=== PATIENT | female | born 1965 | race Caucasian/White ===

== ENCOUNTER → 2018-08-15 11:11 | Outpatient (CLI) | payer OTHER, SELFPAY ==
[2018-08-15 11:23] LABS: RBC Urine None Seen (0-5/HPF)
[2018-08-15 11:50] LABS: Hematocrit 40.7 % (36-46); Hemoglobin 13.6 g/dL (12.0-16.0); Mean Corpuscular HGB Conc 33.3 % (30-36); Mean Corpuscular Volume 93.2 fL (80-100); Platelet Count 268 X10^3/uL (150-400); Red Blood Cell Count 4.37 X10^6/uL (4.0-5.2); Red Cell Distribution Width 13.4 % (11.6-14.8)
[2018-08-15 12:24] LABS: BUN Creatinine Ratio 13.3 (6-22); Blood Urea Nitrogen 16 mg/dL (7-17); Calcium 9.3 mg/dL (8.4-10.2); Carbon Dioxide 27 mmol/L (22-32); Chloride 100 mmol/L (98-107); Glucose 99 mg/dL (70-100); HEMOLYSIS < 15 (0-50); Potassium 4.5 mmol/L (3.4-5.1); Sodium 138 mmol/L (137-145)
[2018-08-15 12:30] LABS: Transferrin 237 mg/dL (206-381)
[2018-08-15 12:31] LABS: Appearance Urine UA CLEAR; Bilirubin Urine UA NEGATIVE (NEGATIVE); Color Urine UA YELLOW; Glucose Urine UA NEGATIVE (Negative); Ketones Urine UA NEGATIVE (NEGATIVE); Leukocyte Esterase Urine UA NEGATIVE (NEGATIVE); Nitrite Urine UA NEGATIVE (Negative); Occult Blood Urine UA NEGATIVE (Negative); Protein Urine UA NEGATIVE (Negative); Specific Gravity Urine UA 1.025 (1.000-1.035); Urobilinogen Urine UA 0.2 E.U./dL (0.2); pH Urine UA 5.5 (4.5-8.0)
[2018-08-15 12:42] LABS: Amorphous Sediment Urine 1+; Bacteria Urine Moderate (10-30); Culture Indicated Urine Cult Not Indicated; Squamous Epithelial Cell Urine 5-10 /HPF; WBC Urine 0-1/HPF (0-5/HPF)
== END ==
PROVIDERS: Family Provider Family Medicine; PCP Family Medicine; Visit Provider Orthopaedic Surgery
DX: E61.1 Iron deficiency (principal); N39.0 Urinary tract infection, site not specified; R73.9 Hyperglycemia, unspecified; Z01.818 Encounter for other preprocedural examination
CPT/HCPCS: 36415; 80048; 81001; 83036; 84466; 85027; 93005; 93010

== ENCOUNTER → 2018-08-22 08:07 | Outpatient (CLI) | payer OTHER, SELFPAY ==
[2018-08-22 09:31] LABS: Alanine Aminotransferase 30 IU/L (9-52); Albumin 4.7 g/dL (3.5-5.0); Albumin Globulin Ratio 1.5 (1.0-2.8); Alkaline Phosphatase 56 U/L (38-126); Aspartate Aminotransferase 26 IU/L (14-36); BUN Creatinine Ratio 17.5 (6-22); Bilirubin Total 0.5 mg/dL (0.2-1.3); Blood Urea Nitrogen 14 mg/dL (7-17); Calcium 9.3 mg/dL (8.4-10.2); Carbon Dioxide 27 mmol/L (22-32); Chloride 97 mmol/L (98-107); Cholesterol 194 mg/dL (140-199); Estimated Glomerular Filt Rate > 60.0 mL/min (>60); Globulin 3.2 g/dL (1.7-4.1); Glucose 93 mg/dL (70-100); HDL Cholesterol 73 mg/dL (40-60); HEMOLYSIS < 15 (0-50); LDL Cholesterol Calculated 106 mg/dL (<100); Potassium 3.6 mmol/L (3.4-5.1); Sodium 136 mmol/L (137-145); Total Protein 7.9 g/dL (6.3-8.2); Triglycerides 73 mg/dL (35-150)
[2018-08-22 10:41] LABS: TSH w/ Reflex to FT4 3.79 uIU/mL (0.47-4.68)
== END ==
PROVIDERS: PCP Family Medicine; Visit Provider Family Medicine
DX: Z00.00 Encounter for general adult medical examination without abnormal findings (principal); Z13.6 Encounter for screening for cardiovascular disorders
CPT/HCPCS: 36415; 80053; 80061; 84443

== ENCOUNTER → 2018-08-28 09:46 | Outpatient (CLI) | payer OTHER, SELFPAY ==
--- NOTE | 2018-08-28 | DI.MG.S_ITS ---
BILATERAL DIGITAL SCREENING MAMMOGRAM 3D/2D WITH CAD WITH AUGMENTATION: 08/28/2018 CLINICAL: Routine screening. Family history of breast cancer. Comparison is made to exams dated: 08/27/2017 mammogram, 08/24/2016 mammogram, and 07/11/2015 mammogram - [facility]. The tissue of both breasts is heterogeneously dense. This may lower the sensitivity of mammography. Current study was also evaluated with a Computer Aided Detection (CAD) system. Bilateral breast implants are intact. There are benign calcifications in both breasts. No significant masses, calcifications, or other findings are seen in either breast. There has been no significant interval change. IMPRESSION: There is no mammographic evidence of malignancy. A 1 year screening mammogram is recommended. This exam was interpreted at Station ID: [id number]. NOTE: For mammograms, a report in lay terms will be sent to the patient. Approximately 15% of breast malignancies will not be visualized mammographically. In the management of a palpable breast mass, a negative mammogram must not discourage biopsy of a clinically suspicious lesion. Electronically Signed By: Zen nielsen/chris:08/28/2018 10:49:23 copy to: Oscar Sue letter sent: Normal Exam ACR BI-RADS Category 2: Benign Finding(s) 3342F
== END ==
PROVIDERS: PCP Family Medicine; Visit Provider Obstetrics & Gynecology
DX: Z12.31 Encounter for screening mammogram for malignant neoplasm of breast (principal); Z80.3 Family history of malignant neoplasm of breast
CPT/HCPCS: 77063; 77067

== ENCOUNTER → 2019-10-30 15:12 | Outpatient (CLI) | payer OTHER, SELFPAY ==
--- NOTE | 2019-10-30 | DI.MG.S_ITS ---
BILATERAL DIGITAL SCREENING MAMMOGRAM 3D/2D WITH CAD WITH AUGMENTATION: 10/30/2019 CLINICAL: Routine screening. Family history of breast cancer. Comparison is made to exams dated: 08/28/2018 mammogram, 08/27/2017 mammogram, and 08/24/2016 mammogram - [facility]. The tissue of both breasts is heterogeneously dense. This may lower the sensitivity of mammography. Current study was also evaluated with a Computer Aided Detection (CAD) system. Bilateral breast implants are intact. There are benign calcifications in both breasts. No significant masses, calcifications, or other findings are seen in either breast. There has been no significant interval change. IMPRESSION: There is no mammographic evidence of malignancy. A 1 year screening mammogram is recommended. This exam was interpreted at Station ID: [id number]. NOTE: For mammograms, a report in lay terms will be sent to the patient. Approximately 15% of breast malignancies will not be visualized mammographically. In the management of a palpable breast mass, a negative mammogram must not discourage biopsy of a clinically suspicious lesion. Electronically Signed By: Jacki hardwick/chris:10/30/2019 17:26:57 copy to: Oscar Sue letter sent: Normal Exam ACR BI-RADS Category 2: Benign Finding(s) 3342F
== END ==
PROVIDERS: PCP Family Medicine; Referring Provider Family Medicine; Visit Provider Family Medicine
DX: Z12.31 Encounter for screening mammogram for malignant neoplasm of breast (principal); Z80.3 Family history of malignant neoplasm of breast
CPT/HCPCS: 77063; 77067

== ENCOUNTER → 2019-11-10 10:45 | Outpatient (CLI) | payer OTHER, SELFPAY ==
--- NOTE | 2019-11-10 10:46 | DI.RAD.S_ITS ---
PROCEDURE: XR KNEE RT 3V INDICATIONS: right knee pain OA TECHNIQUE: 3 views of the knee were acquired. COMPARISON: None. FINDINGS: Bones: No fractures or dislocations. No suspicious bony lesions. Soft tissues: No joint effusion. Slight narrowing of the medial compartment joint space. No suspicious soft tissue calcifications. IMPRESSION: No trauma, source of knee pain is not found except for mild medial compartment joint space narrowing. Dictated by: Luc Landaverde M.D. on 11/10/2019 at 11:17 Approved by: Luc Landaverde M.D. on 11/10/2019 at 11:18
== END ==
PROVIDERS: PCP Family Medicine; Referring Provider Family Medicine; Visit Provider Family Medicine
DX: M25.561 Pain in right knee (principal)
CPT/HCPCS: 73562

== ENCOUNTER → 2019-12-24 15:29 | Outpatient (CLI) | payer OTHER, SELFPAY ==
--- NOTE | 2019-12-24 15:33 | DI.RAD.S_ITS ---
PROCEDURE: XR HAND LT MIN 3V INDICATIONS: hand joint pain TECHNIQUE: 3 views of the hand(s) acquired. COMPARISON: None. FINDINGS: Bones: No fractures or dislocations. Carpal bones are normally aligned. No suspicious bony lesions. Soft tissues: No suspicious soft tissue calcifications. IMPRESSION: No trauma found. Source of new pain over the hand is not identified. Dictated by: Luc Landaverde M.D. on 12/24/2019 at 16:18 Approved by: Luc Landaverde M.D. on 12/24/2019 at 16:19
--- NOTE | 2019-12-24 15:33 | DI.RAD.S_ITS ---
PROCEDURE: XR HAND RT MIN 3V INDICATIONS: hand joint pain TECHNIQUE: 3 views of the hand(s) acquired. COMPARISON: None. FINDINGS: Bones: No fractures or dislocations. Carpal bones are normally aligned. No suspicious bony lesions. Soft tissues: No suspicious soft tissue calcifications. IMPRESSION: Source of hand pain is not found. Dictated by: Luc Landaverde M.D. on 12/24/2019 at 16:19 Approved by: Luc Landaverde M.D. on 12/24/2019 at 16:19
[2019-12-24 16:13] LABS: Add Manual Diff / Slide Review NO; Basophils Absolute Auto 0 /uL (0-100); Basophils Percent Auto 0.6 % (0-2); Eosinophils Absolute Auto 400 /uL (0-450); Eosinophils Percent Auto 5.8 % (2-4); Hematocrit 38.2 % (36-46); Hemoglobin 13.2 g/dL (12.0-16.0); Lymphocytes Absolute Auto 2600 /uL (1100-4500); Lymphocytes Percent Auto 41.3 % (25-40); Mean Corpuscular HGB Conc 34.6 % (30-36); Mean Corpuscular Hemoglobin 31.4 PG (26-34); Mean Corpuscular Volume 90.7 fL (80-100); Monocytes Absolute Auto 400 /uL (0-900); Monocytes Percent Auto 6.5 % (3-14); Neutrophils Absolute Auto 2900 /uL (1500-7000); Neutrophils Percent Auto 45.8 % (50-75); Platelet Count 240 X10^3/uL (150-400); Red Blood Cell Count 4.21 X10^6/uL (4.0-5.2); Red Cell Distribution Width 12.4 % (11.6-14.8); White Blood Cell Count 6.3 X10^3/uL (4.5-11.0)
[2019-12-24 16:38] LABS: Erythrocyte Sedimentation Rate 4 MM/HR (0-20)
[2019-12-24 16:59] LABS: Alanine Aminotransferase 22 IU/L (<35); Albumin 4.6 g/dL (3.5-5.0); Albumin Globulin Ratio 1.7 (1.0-2.8); Alkaline Phosphatase 70 U/L (38-126); Aspartate Aminotransferase 33 IU/L (14-36); BUN Creatinine Ratio 18.6 (6-22); Bilirubin Total 0.3 mg/dL (0.2-1.3); Blood Urea Nitrogen 13 mg/dL (7-17); C-Reactive Protein Quant < 0.5 mg/dL (<1.0); Calcium 9.5 mg/dL (8.4-10.2); Carbon Dioxide 29 mmol/L (22-32); Chloride 103 mmol/L (98-107); Estimated Glomerular Filt Rate > 60.0 mL/min (>60); Globulin 2.7 g/dL (1.7-4.1); Glucose 129 mg/dL (70-100); HEMOLYSIS < 15 (0-50); Potassium 3.9 mmol/L (3.4-5.1); Sodium 140 mmol/L (137-145); Total Protein 7.3 g/dL (6.3-8.2)
[2019-12-24 17:00] LABS: Rheumatoid Factor < 8.6 IU/mL (<12.0)
[2019-12-24 17:27] LABS: TSH w/ Reflex to FT4 1.38 uIU/mL (0.47-4.68)
[2019-12-27 15:08] LABS: CCP Antibodies IgG/IgA 3 units (0-19)
== END ==
PROVIDERS: PCP Family Medicine; Referring Provider Family Medicine; Visit Provider Family Medicine
DX: M13.0 Polyarthritis, unspecified (principal)
CPT/HCPCS: 36415; 73130; 80053; 84443; 85025; 85651; 86140; 86200; 86430

== ENCOUNTER → 2020-06-07 08:57 | Outpatient (CLI) | payer OTHER, SELFPAY ==
[2020-06-07 09:36] LABS: COVID19 -Nasal RAPID Negative (Negative)
== END ==
PROVIDERS: PCP Family Medicine; Visit Provider Obstetrics & Gynecology
DX: Z01.812 Encounter for preprocedural laboratory examination (principal); Z20.828 Contact with and (suspected) exposure to other viral communicable diseases
CPT/HCPCS: 87635

== ENCOUNTER 2020-06-08 09:23 | Day surgery (SDC) | payer OTHER, SELFPAY ==
[2020-06-07 10:50] VITALS: BMI 22.4
[2020-06-08] VITALS (9 sets, daily range): BP systolic 106–135; BP diastolic 54–75; PULSE 70–104; RESP 11–18; TEMP 36.8–37.8; O2SAT 98–100; BMI 21.1
--- NOTE | 2020-06-08 | PATH_ITS ---
[facility] Accession Number: [id number] . 01 Material submitted: . endometrium - ENDOMETRIAL CURETTINGS . 02 Diagnosis: Endometrium, Curettage: Shedding endometrium. Negative for atypical hyperplasia or malignancy. MRV 06/13/2020 1116 Local . 02 Electronically signed: . Radames Grover MD, PhD, Pathologist NPI- [id number] . 01 Gross description: . Received in formalin, labeled endometrial curettings consists of multiple ulrich-pink fragments of soft tissue admixed with clotted blood measuring 2.0 x 1.0 x 0.3 cm in aggregate. The specimen is filtered and entirely submitted in cassette A1. ([id number]) /MRV 06/09/2020 0949 Local . 02 Pathologist provided ICD-10: N95.0 . 02 CPT . 171524 Performed at: 01 [facility] [address] [facility] [place][note 2], [place], [place] [id number] MD Navdeep Boyce MD Phone: [phone] Performed at: 02 [facility] [address] [place], [place] [id number] MD Colleen Monreal MD Phone: [phone]
[2020-06-08] MEDS: LACTATED RINGERS 1,000 ML 42 ML IV ×2 (09:58→11:30)
--- NOTE | 2020-06-08 10:51 | P.OP_ITS ---
Operative Date/Time/Diagnoses Date of procedure: 06/08/20 Time of procedure: 11:32 Pre-op diagnosis: Postmenopausal bleeding s/p endometrial ablation Post-op diagnosis: same Procedure & Clinicians Procedure: Procedures Operation Date: 06/08/20 10:45 <No data on this case meets the specified criteria> Indications: Postmenopausal bleeding Surgeon: Jennifer Luque Anesthesia Type: General (LMA) Operative Notes Findings: Seven week size anteverted uterus No fibroids or polyps in the uterus Closure Type: not applicable Specimen(s): endometrial curettings Estimated blood loss (mL): 5 Blood products transfused: none Procedure in detail: After informed consent was obtained, the patient was taken to the operating room where she was placed in the dorsal supine position. After adequate LMA general anesthesia was achieved, she was placed in the dorsal li thotomy position, and prepped and draped in the usual sterile fashion. A time- out was performed. A bivalve speculum was placed into the vagina and the anterior lip of the cervix was grasped with a single-tooth tenaculum. The cervical os was pinpoint. The gold handled small dilators were used to dilate the os up to the # 5 Hegar dilator. The Hegar dilators were then used to dilate up to the # 7 Hegar dilator. The hysteroscope passed easily into the endometrial cavity. The fundus of the uterus was visualized. There were no polyps or fibroids seen. The hysteroscope was removed. Sharp curettage was performed yielding a moderate amount of endometrial curettings. The instruments were removed from the uterus. The single-tooth tenaculum was removed from the anterior lip of the cervix. The bivalve speculum was removed from the vagina. Sponge, lap, and instrument counts were correct x2. The patient tolerated the procedure well, and was taken to PACU in stable condition. Complications: none Post-operative Condition: stable Disposition: PACU Plan for aftercare: Home after recovery
--- NOTE | 2020-06-08 10:52 | PM.HP.1 ---
History of Present Illness History of Present Illness Date Patient Seen: 06/08/20 Time Patient Seen: 10:52 Chief complaint: SDC Narrative: Patient is a 54-year-old with postmenopausal bleeding here for D&C hysteroscopy Patient is status post an endometrial ablation and she was pretreated with Cytotec vaginally Patient History Medical History (Updated 06/08/20 @ 10:10 by Summer Rangel RN) Anxiety (02/27/17) Anxiety Arrhythmia Arthritis Depression Heart murmur Hypnotic dependence with current use Insomnia Right shoulder pain Sinus drainage Surgical History (Updated 06/06/20 @ 05:57 by Jennifer Luque MD) History of arthroscopy of left knee (08/12/02) History of breast augmentation (2000) History of colonoscopy (11/23/09) History of endometrial ablation (08/08/12) History of excision of lesion (11/23/09) History of left knee surgery History of prosthetic unicompartmental arthroplasty of left knee (02/12/14) Status post breast biopsy (1982) Status post bunionectomy (01/07/13) Status post delivery (1988) Status post delivery (1991) Status post tubal ligation (2000) Family & Social History Social History: household members spouse Tobacco & Substance use: Smoking Status Former smoker alcohol intake current alcohol intake frequency 0-2 drinks per day Substance Use Type does not use Meds Home Medications and Allergies Home Medications Medication Instructions Recorded Confirmed Type multivitamin 1 cap PO DAILY #0 11/29/11 06/08/20 History estradiol See Rx Instructions VAGINAL 08/22/16 06/07/20 Rx .COMPLEX #42.5 gram ketoconazole 2 % topical cream 1 applictn TOP BID #30 gram 06/27/18 06/07/20 Rx nystatin-triamcinolone 100,000 1 applictn TOP BID #30 gram 06/27/18 06/07/20 Rx unit/gram-0.1 % topical ointment fexofenadine 60 mg tablet 60 mg PO DAILY tab 12/29/18 06/08/20 History trazodone 50 mg tablet 50 mg PO BEDTIME #30 tab 08/20/19 06/08/20 Rx estradiol See Rx Instructions .ROUTE 10/19/19 06/07/20 Rx .COMPLEX #3 each gabapentin 200 PO BEDTIME 12/30/20 History Allergies Allergy/AdvReac Type Severity Reaction Status Date / Time Penicillins [PENICILLINS] Allergy Severe RASH Verified 06/08/20 09:57 bupropion [From WELLBUTRIN] AdvReac Unknown RASH Verified 06/08/20 09:57 Exam Vital Signs (past 8 hours): - 06/08/20 09:59 Temperature 100.1 F H Pulse Rate 104 H Respiratory Rate 14 Blood Pressure 117/72 Pulse Oximetry 98 Oxygen Delivery Method Room Air Narrative Exam Narrative: HEENT: No thyromegaly, no anterior cervical or supraclavicular lymphadenopathy. Lungs:Clear to auscultation bilaterally, no wheezes. Cardiovascular: Regular rate and rhythm, no murmurs, rubs, or gallops. Abdomen: Well-healed Pfannenstiel scars. No hepatosplenomegaly. No masses palpable. External genitalia: Normal Vagina: Normal Cervix: Normal Bimanual exam: 7 Week size anteverted uterus. Mobile.] No adnexal masses or tenderness Rectal: No masses. Assessment & Plan Assessment & Plan narrative: Assessment: 54-year-old with postmenopausal bleeding Status post endometrial ablation Plan: D&C hysteroscopy The risks, benefits, and alternatives to the procedure were explained to the patient. The risks including bleeding, infection, and uterine perforation. She understands these risks and agrees to proceed. A full par Q was held and consent form was signed. COVID-19 COVID-19 status: Negative Result date/Date tested (Pos, Neg/Pending): 06/07/20 Time Spent With Patient Time with patient: 15-24 minutes
--- NOTE | 2020-06-08 10:54 | PM.PREOP ---
Pre-operative Note COVID-19 COVID-19 status: Negative Result date/Date tested (Pos, Neg/Pending): 06/07/20 Interval Note History & Physical reviewed/Exam performed by Physician: Yes Changes to H&P: No H&P completed within 30 days and has changed as indicated here:: 06/08/20
--- NOTE | 2020-06-08 11:24 | SUR.OPER ---
Lithotomy on padded OR bed, head on pillow, arms secured on padded arm boards at <90 degrees abduction. Legs secured in padded yellow fins stirrups. Lithotomy on padded OR bed, head on pillow, arms secured on padded arm boards at <90 degrees abduction. Legs secured in padded yellow fins stirrups.
[2020-06-08] MEDS: OXYCODONE/ACETAMINOPHEN 5/325 TABLET 1 TAB PO (11:46)
== END 2020-06-08 12:36 | disposition home or self-care (01) ==
PROVIDERS: PCP Family Medicine; Referring Provider Obstetrics & Gynecology; Visit Provider Obstetrics & Gynecology
PROC: 0UDB8ZZ Extraction of Endometrium, Via Natural or Artificial Opening Endoscopic (ICD-10-PCS; CPT 58558; principal; 2020-06-08 10:45)
DX: N95.0 Postmenopausal bleeding (principal); F41.9 Anxiety disorder, unspecified; R01.1 Cardiac murmur, unspecified; F32.9 Major depressive disorder, single episode, unspecified
CPT/HCPCS: 58558; J1100; J1885; J2250; J2405; J2704; J3010

== ENCOUNTER → 2020-08-22 16:24 | Outpatient (CLI) | payer OTHER, SELFPAY ==
[2020-08-22] MEDS: COVID-19 VACC, Ad26(JANSSEN)/PF 0.5 ML IM (16:43)
== END ==
PROVIDERS: PCP Family Medicine; Visit Provider Internal Medicine
DX: Z23 Encounter for immunization (principal)
CPT/HCPCS: 0031A; 91303

== ENCOUNTER → 2020-10-26 09:30 | Outpatient (CLI) | payer OTHER, SELFPAY ==
[2020-10-26 10:26] LABS: COVID19 -Nasal RAPID Negative (Negative)
== END ==
PROVIDERS: PCP Family Medicine; Visit Provider Surgery
DX: Z01.812 Encounter for preprocedural laboratory examination (principal); Z20.822 Contact with and (suspected) exposure to COVID-19
CPT/HCPCS: 87635; C9803

== ENCOUNTER 2020-10-27 13:20 | Day surgery (SDC) | payer OTHER, SELFPAY ==
[2020-10-27] VITALS (7 sets, daily range): BP systolic 104–148; BP diastolic 56–90; PULSE 58–78; RESP 12–18; TEMP 36.6–36.7; O2SAT 99–100; BMI 21.7
--- NOTE | 2020-10-27 14:30 | P.HP_ITS ---
History of Present Illness History of Present Illness Date Patient Seen: 10/27/20 Time Patient Seen: 14:30 Chief complaint: [facility] [place] Narrative: The patient presents for colorectal sreening. She had previous colonoscopy 10 years ago which was normal.. No personal or family history of colon cancer. On further history denies any recent gastrointestinal symptoms. No nausea, vomiting, abdominal pain, loss of appetite, unexplained weight loss, change in bowel habits, diarrhea, constipation, melena, hematochezia, or bright red blood per rectum. Patient History Medical History Anxiety (02/27/17) Anxiety Arrhythmia Arthritis Depression Heart murmur Hypnotic dependence with current use Insomnia Right shoulder pain Sinus drainage Surgical History History of arthroscopy of left knee (08/12/02) History of breast augmentation (2000) History of colonoscopy (11/23/09) History of endometrial ablation (08/08/12) History of excision of lesion (11/23/09) History of left knee surgery History of prosthetic unicompartmental arthroplasty of left knee (02/12/14) Status post breast biopsy (1982) Status post bunionectomy (01/07/13) Status post delivery (1988) Status post delivery (1991) Status post tubal ligation (2000) Family & Social History Social History: household members spouse Tobacco & Substance use: Tobacco type cigarettes Smoking Status Former smoker alcohol intake current alcohol intake frequency 0-2 drinks per day Substance Use Type does not use Meds Home Medications and Allergies Home Medications Medication Instructions Recorded Confirmed Type multivitamin 1 cap PO DAILY #0 11/29/11 06/08/20 History estradiol See Rx Instructions VAGINAL 08/22/16 10/27/20 Rx .COMPLEX #42.5 gram ketoconazole 2 % topical cream 1 applictn TOP BID #30 gram 06/27/18 10/27/20 Rx nystatin-triamcinolone 100,000 1 applictn TOP BID #30 gram 06/27/18 06/07/20 Rx unit/gram-0.1 % topical ointment fexofenadine 60 mg tablet 60 mg PO DAILY tab 12/29/18 10/27/20 History trazodone 50 mg tablet 50 mg PO BEDTIME #30 tab 08/20/19 10/27/20 Rx gabapentin 100 mg capsule 200 mg PO BEDTIME #180 cap 07/20/20 10/27/20 Rx estradiol 10 mcg vaginal tablet 10 mcg VAGINAL 2XW #24 tab 07/22/20 10/27/20 Rx Allergies Allergy/AdvReac Type Severity Reaction Status Date / Time Penicillins [PENICILLINS] Allergy Severe RASH Verified 10/27/20 13:50 bupropion [From WELLBUTRIN] AdvReac Severe RASH Verified 10/27/20 13:51 Review of Systems Review of Systems ROS: Yes All systems reviewed with the patient and are negative except as otherwise documented Exam Vital Signs (past 8 hours): - 10/27/20 13:36 Temperature 98.0 F Pulse Rate 78 Respiratory Rate 16 Blood Pressure 148/90 H Pulse Oximetry 100 Oxygen Delivery Method Room Air Narrative Exam Narrative: GENERAL-well developed adult female, no acute distress HEENT-no scleral icterus, hearing intact NECK-no JVD, trachea midline CVS- regular rate, no peripheral edema RESP-unlabored respiratory effort, no audible wheezing GI-soft, nontender nondistended MSK-no cyanosis or clubbing, extremities without deformity SKIN-warm, dry NEURO-alert and oriented, no focal deficits PYSCH-Appropriate mood and affect Assessment & Plan Assessment & Plan narrative: The patient requires colorectal screening and colonoscopy is recommended. Technical details were discussed. Risks, benefits, alternatives explained. Risks including but not limited to myocardial infarction, aspiration, bleeding, pain, missed lesion, incomplete examination, need for further radiographic studies, colonic perforation, and need for major abdominal surgery were discussed. All questions were answered to their satisfaction, and they are in agreement with this plan.
[2020-10-27] MEDS: fentaNYL 250 MCG/5 ML INJ IV (15:01)
[2020-10-27] MEDS: MIDAZOLAM 5 MG/5 ML VIAL IV (15:07)
--- NOTE | 2020-10-27 15:24 | PM.OP.ENDO ---
Operative Date/Time/Diagnoses Date of procedure: 10/27/20 Time of procedure: 15:24 Pre-op diagnosis: Screening colonoscopy Post-op diagnosis: same Procedure & Clinicians Study performed: Colonoscopy Indications: Screening Surgeon: Lamont Chung Procedure Notes Procedure in detail: Medications: Conscious sedation using 14 mg IV midazolam and 250 mcg IV of fentanyl The history and physical was performed/updated and the patient is ASA class is 1. The procedure was discussed in detail with the patient. Potential risks complications including infection, bleeding, missed diagnosis, perforation, need for surgery, and were explained. Their questions were answered and informed consent was obtained. Patient was brought to the procedure room and placed standard monitoring equipment. The patient's vital signs were monitored continuously throughout the entire procedure. Prior to starting time-out was performed. The patient was placed in the left lateral recumbent position. Procedural sedation was administered. Examination began with a thorough inspection of the perianal area there was no evidence of fissures, fistulae, external hemorrhoids or cutaneous malignancy. The colonoscopy scope was then placed into the anal canal and was advanced to the cecum, which was identified by the ileocecal valve, the appendiceal orifice and the confluence of the taenia. The scope was then slowly withdrawn examining colon thoroughly in all directions, irrigating it of any residual stool. 1. No masses or polyps 2. Sigmoid diverticulosis 3. Grade 2 internal hemorrhoids The patient tolerated the procedure well. They will be discharged once criteria are met. The prep was of good/excellent quality. The withdrawl time was 7 minutes. The sedation time was 38 minutes. Impression: Normal colonoscopy Post-procedure Recommendations: Colonscopy in 10 years Disposition: same day surgery
== END 2020-10-27 16:03 | disposition home or self-care (01) ==
PROVIDERS: PCP Family Medicine; Referring Provider Surgery; Visit Provider Surgery
PROC: 0DJD8ZZ Inspection of Lower Intestinal Tract, Via Natural or Artificial Opening Endoscopic (ICD-10-PCS; CPT 45378; principal; 2020-10-27 14:30)
DX: Z12.11 Encounter for screening for malignant neoplasm of colon (principal); K57.30 Diverticulosis of large intestine without perforation or abscess without bleeding; K64.1 Second degree hemorrhoids
CPT/HCPCS: 45378; 99152; 99153; J2250; J3010

== ENCOUNTER → 2020-12-24 09:15 | Outpatient (CLI) | payer OTHER, SELFPAY ==
[2020-12-24 10:38] LABS: Add Manual Diff / Slide Review NO; Basophils Absolute Auto 0 /uL (0-100); Basophils Percent Auto 0.8 % (0-2); Eosinophils Absolute Auto 400 /uL (0-450); Eosinophils Percent Auto 7.2 % (2-4); Lymphocytes Absolute Auto 2300 /uL (1100-4500); Lymphocytes Percent Auto 42.8 % (25-40); Mean Corpuscular HGB Conc 33.3 % (30-36); Mean Corpuscular Hemoglobin 30.5 PG (26-34); Mean Corpuscular Volume 91.6 fL (80-100); Monocytes Absolute Auto 400 /uL (0-900); Neutrophils Absolute Auto 2200 /uL (1500-7000); Neutrophils Percent Auto 41.2 % (50-75); Platelet Count 260 X10^3/uL (150-400); Red Blood Cell Count 4.26 X10^6/uL (4.0-5.2); White Blood Cell Count 5.4 X10^3/uL (4.5-11.0)
[2020-12-24 10:44] LABS: Alanine Aminotransferase 19 IU/L (<35); Albumin 4.4 g/dL (3.5-5.0); Albumin Globulin Ratio 1.5 (1.0-2.8); Alkaline Phosphatase 66 U/L (38-126); Aspartate Aminotransferase 31 IU/L (14-36); BUN Creatinine Ratio 23.2 (6-22); Bilirubin Total 0.4 mg/dL (0.2-1.3); Blood Urea Nitrogen 16 mg/dL (7-17); Calcium 9.5 mg/dL (8.4-10.2); Carbon Dioxide 28 mmol/L (22-32); Chloride 103 mmol/L (98-107); Cholesterol 199 mg/dL (140-199); Estimated Glomerular Filt Rate > 60.0 mL/min (>60); Globulin 2.9 g/dL (1.7-4.1); Glucose 98 mg/dL (70-100); HDL Cholesterol 77 mg/dL (40-60); HEMOLYSIS < 15 (0-50); LDL Cholesterol Calculated 107 mg/dL (<100); Potassium 4.4 mmol/L (3.4-5.1); Sodium 138 mmol/L (137-145); Total Protein 7.3 g/dL (6.3-8.2); Triglycerides 74 mg/dL (35-150)
[2020-12-24 11:15] LABS: TSH w/ Reflex to FT4 2.08 uIU/mL (0.47-4.68)
== END ==
PROVIDERS: PCP Family Medicine; Referring Provider Family Medicine; Visit Provider Family Medicine
DX: F41.9 Anxiety disorder, unspecified (principal); M13.0 Polyarthritis, unspecified
CPT/HCPCS: 36415; 80053; 80061; 84443; 85025

== ENCOUNTER → 2020-12-26 11:58 | Outpatient (CLI) | payer OTHER, SELFPAY ==
--- NOTE | 2020-12-26 11:59 | DI.RAD.S_ITS ---
PROCEDURE: XR FINGER RT MIN 2V INDICATIONS: finger injury TECHNIQUE: AP hand, 2 views of the right 3rd finger(s) acquired. COMPARISON: None. FINDINGS: Bones: No acute fractures or dislocations. There is mild flexion at the distal interphalangeal joint of the 3rd finger. No suspicious bony lesions. Soft tissues: No suspicious soft tissue calcifications. IMPRESSION: Mild flexion at the distal interphalangeal joint of the right 3rd finger. No associated fracture or dislocation. If there is persistent clinical concern for occult fracture given adequate mechanism of injury, consider repeat imaging in 10-14 days. Dictated by: Zen Oakley M.D. on 12/26/2020 at 15:07 Approved by: Zen Oakley M.D. on 12/26/2020 at 15:22
== END ==
PROVIDERS: PCP Family Medicine; Referring Provider Family Medicine; Visit Provider Family Medicine
DX: S69.81XA Other specified injuries of right wrist, hand and finger(s), initial encounter (principal); X58.XXXA Exposure to other specified factors, initial encounter
CPT/HCPCS: 73140

== ENCOUNTER → 2021-01-17 10:14 | Outpatient (CLI) | payer OTHER, SELFPAY | PROVIDERS: PCP Family Medicine; Referring Provider Family Medicine; Visit Provider Family Medicine | DX: Z12.31 Encounter for screening mammogram for malignant neoplasm of breast (principal); Z53.9 Procedure and treatment not carried out, unspecified reason ==

== ENCOUNTER → 2021-03-30 11:45 | Outpatient (CLI) | payer OTHER, SELFPAY ==
--- NOTE | 2021-03-30 | DI.MG.S_ITS ---
BILATERAL DIGITAL SCREENING MAMMOGRAM 3D/2D WITH CAD WITH AUGMENTATION: 03/30/2021 CLINICAL: Routine screening. Family history of breast cancer. Comparison is made to exams dated: 10/30/2019 mammogram, 08/28/2018 mammogram, 08/27/2017 mammogram, 08/24/2016 mammogram, and 07/11/2015 mammogram - [facility]. The tissue of both breasts is heterogeneously dense. This may lower the sensitivity of mammography. Current study was also evaluated with a Computer Aided Detection (CAD) system. Bilateral breast implants are intact. There are benign calcifications in both breasts. No significant masses, calcifications, or other findings are seen in either breast. There has been no significant interval change. IMPRESSION: BENIGN There is no mammographic evidence of malignancy. A 1 year screening mammogram is recommended. This exam was interpreted at Station ID: [id number]. NOTE: For mammograms, a report in lay terms will be sent to the patient. Approximately 15% of breast malignancies will not be visualized mammographically. In the management of a palpable breast mass, a negative mammogram must not discourage biopsy of a clinically suspicious lesion. Electronically Signed By: Puneet huertas/chris:03/30/2021 12:51:08 copy to: Oscar Sue letter sent: Normal Exam ACR BI-RADS Category 2: Benign Finding(s) 3342F
== END ==
PROVIDERS: PCP Family Medicine; Referring Provider Family Medicine; Visit Provider Family Medicine
DX: Z12.31 Encounter for screening mammogram for malignant neoplasm of breast (principal); Z80.3 Family history of malignant neoplasm of breast
CPT/HCPCS: 77063; 77067

== ENCOUNTER → 2021-06-15 14:27 | Outpatient (CLI) | payer OTHER, SELFPAY ==
--- NOTE | 2021-06-15 14:28 | DI.US.S_ITS ---
PROCEDURE: US ABDOMEN COMPLETE INDICATIONS: RUQ PAIN TECHNIQUE: Real-time scanning was performed of the abdominal and retroperitoneal organs, with image documentation. COMPARISON: None. FINDINGS: Liver: Liver is normal in size and homogeneous in echotexture. 1.4 x 1.2 x 1.2 centimeter hyperechoic lesion noted in the anterior right hepatic lobe which likely represents hemangioma. Gallbladder: Gallbladder is sonographically normal. No gallstones. No gallbladder wall thickening. Gallbladder wall measures 1.8 millimeters. No pericholecystic fluid. No sonographic Saleem sign. Biliary ducts: Intrahepatic bile ducts are non-dilated. Extrahepatic bile duct caliber measures 5.2 mm. Normal is 6-7 mm or less in diameter, or 10 mm or less post-cholecystectomy. Pancreas: Visualized portions of the pancreas are sonographically normal. Spleen: Spleen is normal in size and homogeneous in echotexture. Kidneys: Kidneys are normal in size and echotexture. Right kidney measures 10.3 cm long; left kidney measures 12.4 cm long. No hydronephrosis or nephrolithiasis. No solid masses. Aorta: Visualized aorta is normal in caliber at less than 3 cm. Iliacs: Proximal common iliac arteries are normal in caliber at less than 2.5 cm. IVC: Intrahepatic inferior vena cava is patent. Miscellaneous: No free abdominal fluid. IMPRESSION: Normal abdominal sonogram without evidence of cholelithiasis or cholecystitis. If there is continued clinical concern for cholecystitis, a nuclear medicine HIDA scan should be considered for further evaluation. Dictated by: Deirdre Pérez MD, PhD on 06/16/2021 at 7:48 Approved by: Deirdre Pérez MD, PhD on 06/16/2021 at 7:49
--- NOTE | 2021-06-15 14:30 | DI.RAD.S_ITS ---
PROCEDURE: XR CHEST 2V INDICATIONS: Right upper quadrant pain TECHNIQUE: 2 views of the chest were acquired. COMPARISON: None. FINDINGS: Surgical changes and devices: None. Lungs and pleura: Lungs are clear. No pleural effusions or pneumothorax. Mediastinum: Mediastinal contours are normal. Heart size is normal. Bones and chest wall: No suspicious bony abnormalities. Soft tissues appear unremarkable. IMPRESSION: No evidence acute pulmonary process. Dictated by: Tyshawn Bailey M.D. on 06/15/2021 at 17:24 Approved by: Tyshawn Bailey M.D. on 06/15/2021 at 17:24
== END ==
PROVIDERS: PCP Family Medicine; Referring Provider Physician Assistant; Visit Provider Physician Assistant
DX: R10.11 Right upper quadrant pain (principal); R07.81 Pleurodynia
CPT/HCPCS: 71046; 76700

== ENCOUNTER → 2021-07-25 07:53 | Outpatient (CLI) | payer OTHER, SELFPAY ==
--- NOTE | 2021-07-25 07:53 | DI.NM.S_ITS ---
PROCEDURE: NM HIDA WITH CCK PHARMACEUTICAL: 5.3 mCi Tc-99m mebrofenin IV; 1.1 mcg CCK IV. INDICATIONS: continued clinical concern for cholecystitis, RUQ pain TECHNIQUE: Following intravenous administration of Tc-99m mebrofenin, sequential anterior abdominal images were obtained. To evaluate the contractile response of the gallbladder in response to Cholecystokinin (CCK), sincalide (0.02 ?g/kg) was administered by slow intravenous infusion approximately 60 minutes after the administration of the radiopharmaceutical. Sequential imaging was continued for 30 minutes after the start of CCK infusion. Gallbladder ejection fraction was calculated. COMPARISON: None. FINDINGS: Biliary scan: There is normal tracer uptake and excretion by the liver. There is normal visualization of the intrahepatic ducts, common bile duct, and gallbladder. There is normal tracer transit into the duodenum. CCK stimulation: There is no significant contractile response of the gallbladder to CCK infusion. The calculated gallbladder ejection fraction is 0 ; normal values are above 35%. It has been shown that any patient abdominal pain after CCK administration is related to the rate of CCK injection, rather than to any underlying gallbladder disease (Clinical Nuclear Medicine 2012; 37: 63-70. Journal of Nuclear Medicine 2014; 55: 1-9). IMPRESSION: 1. Findings consistent with chronic cholecystitis. Dictated by: Dannie Hernandez M.D. on 07/25/2021 at 11:41 Approved by: Dannie Hernandez M.D. on 07/25/2021 at 11:42
== END ==
PROVIDERS: PCP Family Medicine; Referring Provider Physician Assistant; Visit Provider Physician Assistant
DX: R10.11 Right upper quadrant pain (principal); R07.81 Pleurodynia
CPT/HCPCS: 78227; A9537; J2805

== ENCOUNTER 2021-08-01 07:11 | Emergency (ER) | payer OTHER, SELFPAY ==
[2021-08-01 07:33] VITALS: BP 155/91; PULSE 76; RESP 18; TEMP 36.8; O2SAT 100; BMI 21.7
--- NOTE | 2021-08-01 07:53 | ED.GENADULT ---
HPI - General Adult General Chief complaint: Abdominal Pain Stated complaint: Gall Bladder problems Time Seen by Provider: 08/01/21 07:22 Source: patient Mode of arrival: Ambulatory Limitations: no limitations History of Present Illness HPI narrative: Patient is a 56-year-old female who is here for evaluation of approximately 1 week of worsening right upper quadrant abdominal discomfort and nausea and vomiting. She has known gallbladder disease. Had a recent HIDA scan which showed chronic cholecystitis. Has had a right upper quadrant ultrasound in the past which show no evidence of cholelithiasis. Has had normal LFTs up to this point. Has an appointment with general surgery the end of this week however this morning things seem to be getting worse and she is very nauseous. No fevers. No change in bowel habits. She did drink coffee with Creamer this morning approximately 2 hours prior to arrival. Related Data Home Medications Medication Instructions Recorded Confirmed multivitamin 1 cap PO DAILY #0 11/29/11 06/22/21 fexofenadine 60 mg tablet (Vannessa 60 mg PO DAILY tab 12/29/18 06/22/21 Allergy) Previous Rx's Medication Instructions Recorded estradiol (Estrace) See Rx Instructions VAGINAL 08/22/16 .COMPLEX #42.5 gram ketoconazole 2 % topical cream 1 applictn TOP BID #30 gram 06/27/18 nystatin-triamcinolone 100,000 1 applictn TOP BID #30 gram 06/27/18 unit/gram-0.1 % topical ointment citalopram 10 mg tablet 10 mg PO DAILY #90 tab 12/21/20 estradiol (Estring) See Rx Instructions .ROUTE 04/12/21 .COMPLEX #1 ea gabapentin 100 mg capsule 200 mg PO BEDTIME #180 cap 06/06/21 doxycycline monohydrate 100 mg 100 mg PO BID #20 tab 06/13/21 tablet trazodone 50 mg tablet See Rx Instructions .ROUTE 07/10/21 .COMPLEX #30 tab hydrocodone 5 mg-acetaminophen 325 1 tab PO Q6H PRN #10 tab 08/01/21 mg tablet ondansetron 4 mg disintegrating 4 mg PO Q6H PRN #14 tab 08/01/21 tablet Allergies Allergy/AdvReac Type Severity Reaction Status Date / Time bupropion [From WELLBUTRIN] Allergy Severe RASH Verified 08/01/21 07:49 Penicillins [PENICILLINS] Allergy Severe RASH Verified 06/13/21 10:25 Review of Systems Constitutional Constitutional: Denies fever(s) Cardiovascular Cardiovascular: Reports system reviewed and no additional complaints, except as documented Respiratory Respiratory: Reports system reviewed and no additional complaints, except as documented Gastrointestinal Gastrointestinal: Reports as per HPI and Reports system reviewed and no additional complaints, except as documented Genitourinary Genitourinary: Denies dysuria Integumentary/Breasts Skin/Breast: Reports system reviewed and no additional complaints, except as documented Hematologic/Lymphatic On Anticoagulants: No Patient History Medical History Anxiety (02/27/17) Anxiety Arrhythmia Arthritis Depression Endometrial hyperplasia Heart murmur Hypnotic dependence with current use Insomnia Postmenopausal bleeding Right shoulder pain Sinus drainage Surgical History History of arthroscopy of left knee (08/12/02) History of breast augmentation (2000) History of colonoscopy (11/23/09) History of endometrial ablation (08/08/12) History of excision of lesion (11/23/09) History of left knee surgery History of prosthetic unicompartmental arthroplasty of left knee (02/12/14) Status post breast biopsy (1982) Status post bunionectomy (01/07/13) Status post delivery (1988) Status post delivery (1991) Status post tubal ligation (2000) Social History marital status: unmarried,single household members: spouse Smoking Status: Former smoker alcohol intake: current substance use type: does not use Smoking Status: Former smoker alcohol intake frequency: 3 or more drinks per day Substance Use Type: does not use Exam Initial Vital Signs Initial Vital Signs: Vital Signs Temperature 98.2 F 08/01/21 07:33 Pulse Rate 76 08/01/21 07:33 Respiratory Rate 18 08/01/21 07:33 Blood Pressure 155/91 H 08/01/21 07:33 Pulse Oximetry 100 08/01/21 07:33 HENMT Head: normal to inspection and normocephalic Resp Effort & Inspection: normal respiratory effort Auscultation: clear to auscultation bilaterally Cardio Rate: regular rate Rhythm: regular rhythm GI Palpation: soft and tender (Right upper quadrant pain.) Skin General: no rashes or lesions noted Neuro General: patient alert, patient awake, patient oriented x3 and moves all extremities Extrem General: normal to inspection Course Orders Ordered: ED Orders 08/01/21 07:55 Complete Blood Count AUTO DIFF Stat Comprehensive Metabolic Panel Stat Lipase Stat 08/01/21 08:15 EKG-12 Lead Stat Sodium Chloride (Normal Saline 0.9%) 1,000 mls @ 125 mls/hr IV CONT ADRIANA Last Admin: 08/01/21 08:17 Dose: 125 mls/hr Documented by: GRAHAM Discontinued Medications Ondansetron HCl (Ondansetron 4 Mg/2 Ml Inj) 4 mg IV NOW ONE Stop: 08/01/21 07:45 Last Admin: 08/01/21 08:15 Dose: 4 mg Documented by: GRAHAM Vital Signs Vital signs: Vital Signs - 8 hr 08/01/21 07:33 Temperature 98.2 F Pulse Rate 76 Respiratory Rate 18 Blood Pressure 155/91 H Pulse Oximetry 100 Medical Decision Making Medical Records Medical records reviewed: Yes I reviewed the patient's medical records. Lab Data Lab results reviewed: Yes I reviewed the patient's lab results. Result diagrams: 08/01/21 07:55 08/01/21 07:55 Labs: Lab Results 08/01/21 08/01/21 Range/Units 07:55 07:55 WBC 5.1 (4.5-11.0) X10^3/uL RBC 4.16 (4.0-5.2) X10^6/uL Hgb 12.8 (12.0-16.0) g/dL Hct 38.5 (36-46) % MCV 92.5 (80-100) fL MCH 30.7 (26-34) PG MCHC 33.2 (30-36) % RDW 12.9 (11.6-14.8) % Plt Count 263 (150-400) X10^3/uL Neut % (Auto) 46.4 L (50-75) % Lymph % (Auto) 37.9 (25-40) % [place] % (Auto) 8.5 (3-14) % Eos % (Auto) 6.6 H (2-4) % Baso % (Auto) 0.6 (0-2) % Neut # (Auto) 2400 (4480-4097) /uL Lymph # (Auto) 1900 (3620-5954) /uL [place] # (Auto) 400 (0-900) /uL Eos # (Auto) 300 (0-450) /uL Baso # (Auto) 0 (0-100) /uL Sodium 138 (137-145) mmol/L Potassium 3.6 (3.4-5.1) mmol/L Chloride 103 (98-107) mmol/L Carbon Dioxide 34 H (22-32) mmol/L BUN 12 (7-17) mg/dL Creatinine 0.67 (0.52-1.04) mg/dL Estimated GFR > 60.0 (>60) mL/min BUN/Creatinine Ratio 17.9 (6-22) Glucose 91 (70-100) mg/dL Calcium 9.2 (8.4-10.2) mg/dL Total Bilirubin 0.3 (0.2-1.3) mg/dL AST 34 (14-36) IU/L ALT 21 (<35) IU/L Alkaline Phosphatase 66 (38-126) U/L Total Protein 7.7 (6.3-8.2) g/dL Albumin 4.7 (3.5-5.0) g/dL Globulin 3.0 (1.7-4.1) g/dL Albumin/Globulin Ratio 1.6 (1.0-2.8) Lipase 89 (23-300) U/L ECG Data Attestation: I personally reviewed and interpreted this ECG as follows: Prior ECG tracings: available for review Interpretation: Sinus rhythm Ventricular rate is 60 Normal axis Normal QRS Normal QTC No ST T wave changes MDM Narrative Medical decision making narrative: Patient has known gallbladder disease with a HIDA scan that is consistent with chronic cholecystitis. Patient states she feels better after nausea medication. She is afebrile. No leukocytosis. Normal LFTs and bilirubin. Discussed the case with Dr. Booker with general surgery who stated given her presentation she does not meet criteria for emergent/urgent surgery. There is no surgery availability today and it would be several hours because the patient had oral intake shortly before coming here to the emergency department. There is also no surgery availability tomorrow. Given this the patient will continue with the current plan is following up with general surgery the end of this week. I did discuss this with her. She understands that she most likely will need surgical intervention of her issues. Informed her that if she develops fevers or she has discomfort/nausea that is not controlled with the medications she does need to return to the emergency department as she may develop into a more urgent condition. She expressed understanding of this. She is already a low-fat diet. Will discharge home with symptom control. She expressed understanding and agreement plan. Discharge Plan Departure Patient Disposition: Home Clinical Impression: Chronic cholecystitis Instructions: DI for Cholecystitis Activity Restrictions/Additional Instructions: I recommend that you continue to take all of your medications as directed. Keep your appointment that you have scheduled on Saturday with the general surgeon. You will most likely need surgical intervention of your gallbladder issues although I would not anticipate this will happen on Saturday. This will just be an office visit. I recommend a low-fat diet. Return to the emergency department for fevers or symptoms and not controlled with the medications. Prescriptions: New ondansetron 4 mg tablet,disintegrating 4 mg PO Q6H PRN (Reason: nausea and vomiting) Qty: 14 0RF hydrocodone-acetaminophen 5-325 mg tablet 1 tab PO Q6H PRN (Reason: pain) Qty: 10 0RF No Action citalopram 10 mg tablet 10 mg PO DAILY Qty: 90 3RF doxycycline monohydrate 100 mg tablet 100 mg PO BID Qty: 20 0RF multivitamin Capsule 1 cap PO DAILY Qty: 0 0RF ketoconazole 2 % cream 1 applictn TOP BID Qty: 30 1RF Rx Instructions: apply small amount to affected area twice daily. nystatin-triamcinolone 100,000-0.1 unit/gram-% ointment 1 applictn TOP BID Qty: 30 1RF Rx Instructions: Apply to affected area twice a day for 10 days. estradiol [Estrace] 0.01 % (0.1 mg/gram) cream See Rx Instructions Vaginal .COMPLEX Qty: 42.5 3RF Rx Instructions: insert one applicator vaginally up to three times weekly Estring 2 mg (7.5 mcg /24 hour) ring See Rx Instructions .ROUTE .COMPLEX Qty: 1 4RF Dose Instruction: INSTILL 1 RING VAGINALLY EVERY 3 MONTHS Label Comments: removed last night Rx Instructions: INSERT 1 RING VAGINALLY EVERY 3 MONTHS gabapentin 100 mg capsule 200 mg PO BEDTIME Qty: 180 1RF Rx Instructions: take 2 caps at bedtime, may increase to 6 caps at HS as needed for insomnia/hot flashes. trazodone 50 mg tablet See Rx Instructions .ROUTE .COMPLEX Qty: 30 2RF Dose Instruction: Take 1 tablet (50 mg) by mouth at bedtime Rx Instructions: Take 1 tablet (50 mg) by mouth at bedtime fexofenadine [Vannessa Allergy] 60 mg tablet 60 mg PO DAILY 0RF Referrals: Oscar Sue MD [Primary Care Provider] -
[2021-08-01 08:01] LABS: Add Manual Diff / Slide Review NO; Basophils Absolute Auto 0 /uL (0-100); Basophils Percent Auto 0.6 % (0-2); Eosinophils Absolute Auto 300 /uL (0-450); Eosinophils Percent Auto 6.6 % (2-4); Hematocrit 38.5 % (36-46); Hemoglobin 12.8 g/dL (12.0-16.0); Lymphocytes Absolute Auto 1900 /uL (1100-4500); Lymphocytes Percent Auto 37.9 % (25-40); Mean Corpuscular HGB Conc 33.2 % (30-36); Mean Corpuscular Hemoglobin 30.7 PG (26-34); Mean Corpuscular Volume 92.5 fL (80-100); Monocytes Absolute Auto 400 /uL (0-900); Monocytes Percent Auto 8.5 % (3-14); Neutrophils Absolute Auto 2400 /uL (1500-7000); Neutrophils Percent Auto 46.4 % (50-75); Platelet Count 263 X10^3/uL (150-400); Red Blood Cell Count 4.16 X10^6/uL (4.0-5.2); Red Cell Distribution Width 12.9 % (11.6-14.8); White Blood Cell Count 5.1 X10^3/uL (4.5-11.0)
[2021-08-01 08:13] LABS: Alanine Aminotransferase 21 IU/L (<35); Albumin 4.7 g/dL (3.5-5.0); Albumin Globulin Ratio 1.6 (1.0-2.8); Alkaline Phosphatase 66 U/L (38-126); Aspartate Aminotransferase 34 IU/L (14-36); BUN Creatinine Ratio 17.9 (6-22); Bilirubin Total 0.3 mg/dL (0.2-1.3); Blood Urea Nitrogen 12 mg/dL (7-17); Calcium 9.2 mg/dL (8.4-10.2); Carbon Dioxide 34 mmol/L (22-32); Chloride 103 mmol/L (98-107); Estimated Glomerular Filt Rate > 60.0 mL/min (>60); Glucose 91 mg/dL (70-100); HEMOLYSIS < 15 (0-50); Lipase 89 U/L (23-300); Potassium 3.6 mmol/L (3.4-5.1); Sodium 138 mmol/L (137-145); Total Protein 7.7 g/dL (6.3-8.2)
[2021-08-01] MEDS: ONDANSETRON 4 MG/2 ML INJ IV (08:15)
[2021-08-01] MEDS: SODIUM CHLORIDE 0.9% 1,000 ML 125 ML IV (08:17)
== END 2021-08-01 09:26 | disposition home or self-care (01) ==
PROVIDERS: Emergency Provider Emergency Medicine; PCP Family Medicine
DX: K81.1 Chronic cholecystitis (principal); R03.0 Elevated blood-pressure reading, without diagnosis of hypertension
CPT/HCPCS: 36415; 80053; 81003; 83690; 85025; 93005; 96374; 99284; J2405

== ENCOUNTER → 2021-08-09 09:10 | Outpatient (CLI) | payer OTHER, SELFPAY ==
[2021-08-09 10:42] LABS: COVID19 -Nasal RAPID Negative (Negative)
== END ==
PROVIDERS: PCP Family Medicine; Visit Provider Surgery
DX: Z01.812 Encounter for preprocedural laboratory examination (principal); Z20.822 Contact with and (suspected) exposure to COVID-19
CPT/HCPCS: 87635; C9803

== ENCOUNTER 2021-08-10 06:43 | Day surgery (SDC) | payer OTHER, SELFPAY ==
[2021-08-10] VITALS (9 sets, daily range): BP systolic 95–125; BP diastolic 61–74; PULSE 57–80; RESP 10–20; TEMP 36.2–36.7; O2SAT 91–100; BMI 21.7
--- NOTE | 2021-08-10 | PATH_ITS ---
[facility] Accession Number: [id number] No. of containers..04 Tissue . 01 Material submitted: . PART A: duodenum - DUODENUM PART B: stomach - ANTRUM PART C: gastrointestinal site - GASTRIC ULCER PART D: gastrointestinal site - GASTRIC POLYP . 02 Diagnosis: A. Duodenum, Biopsy: Duodenal mucosa with no diagnostic abnormality. Negative for active inflammation, features of sprue, dysplasia, or malignancy. . B. Stomach, Antrum, Biopsy: Antral mucosa with mild chronic gastritis. Negative for Helicobacter by immunohistochemistry. Negative for intestinal metaplasia. Negative for dysplasia and malignancy. . C. Stomach, Ulcer, Biopsy: Acute erosive gastritis. Negative for Helicobacter by immunohistochemistry. Negative for intestinal metaplasia. Negative for dysplasia and malignancy. . D. Stomach, Polyp, Biopsy: Oxyntic mucosa with no significant diagnostic abnormality. Additional levels were examined. No evidence of Helicobacter on H/E stain. Negative for intestinal metaplasia. Negative for dysplasia and malignancy. [facility] 08/15/2021 1527 Local . 02 Electronically signed: . Colleen Monreal MD, Pathologist NPI- [id number] . 01 Gross description: . Part A: DUODENUM: Received in formalin is 1 fragment(s) of ulrich, soft tissue measuring 0.2 x 0.2 x 0.2 cm submitted entirely in 1 cassette(s) Part B: ANTRUM: Received in formalin are 3 fragment(s) of ulrich, soft tissue measuring 0.1 x 0.1 x 0.1 cm to 0.3 x 0.2 x 0.2 cm submitted entirely in 1 cassette(s) Part C: GASTRIC ULCER: Received in formalin is 1 fragment(s) of ulrich, soft tissue measuring 0.3 x 0.2 x 0.2 cm submitted entirely in 1 cassette(s) Part D: GASTRIC POLYP: Received in formalin is 1 fragment(s) of ulrich, soft tissue measuring 0.4 x 0.2 x 0.2 cm submitted entirely in 1 cassette(s) /LILA 08/11/20212004 [facility] . 02 Microscopic: . B-C. Immunohistochemical stains were performed on blocks B and C in order to evaluate for Helicobacter organisms and are both negative. The control stain showed appropriate reactivity. . D. Additional levels were examined. . * This test was developed and its performance characteristics determined by [employer]. It has not been cleared or approved by the U.S. Food and Drug Administration. The FDA has determined that such clearance or approval is not necessary. This test is used for clinical purposes. It should not be regarded as investigational or for research. . 02 Pathologist provided ICD-10: R10.13, K25.9 . 02 CPT . 108077, 326667, 392446, 029661, J22222 Specimen Comment: A courtesy copy of this report has been sent to [phone] Performed at: 01 [facility] [address] [address], [place], [place] [id number] MD Navdeep Boyce MD Phone: [phone] Performed at: 02 [facility] [address] [place] [id number] MD Colleen Monreal MD Phone: [phone]
[2021-08-10] MEDS: LACTATED RINGERS 1,000 ML 100 ML IV ×2 (07:24→08:36)
--- NOTE | 2021-08-10 07:45 | PM.PREOP ---
Pre-operative Note COVID-19 COVID-19 status: Negative Result date/Date tested (Pos, Neg/Pending): 08/09/21 Criteria for continued procedure: Expected advancement of disease process and Continuing or worsening of significant or severe pain Interval Note History & Physical reviewed/Exam performed by Physician: Yes Changes to H&P: No ASA Class (for procedural sedation): II
--- NOTE | 2021-08-10 08:11 | PM.OP.EGD ---
Operative Date/Time/Diagnoses Date of procedure: 08/10/21 Time of procedure: 08:11 Pre-op diagnosis: Dyspepsia Post-op diagnosis: same Procedure & Clinicians Study performed: EGD Same procedure as scheduled: Yes Surgeon: Jun Hamilton Procedure Notes SCOAP/Timeout: Yes Procedure in detail: A timeout was performed. A bite blocked was placed. The patient was positioned in the left lateral decubitus position. The endoscope was inserted through the bite block and passed through the esophagus and stomach and into the duodenum. The duodenal mucosa appeared normal. Random biopsies were taken with cold forceps. The scope was withdrawn into the duodenal bulb and no lesions were noted. The scope was withdrawn into the stomach. There is mild antritis and random biopsies were taken from the antrum with cold forceps. There was a small healing ulcer in the proximal stomach which was biopsied with cold forceps. There was a small polyp in the proximal stomach which was biopsied with cold forceps. The rest of the stomach was normal. The scope was retroflexed and no abnormalities were noted at the hiatus. The scope was withdrawn into the esophagus and the Z-line was normal. The remainder of the esophagus was normal. The scope was withdrawn. The patient was awakened and brought to recovery. Findings: Resolving small proximal gastric ulcer, small proximal gastric polyp and mild antritis. Sedation minutes: 16 Findings: gastric ulcer and gastritis Post-procedure Recommendations: Will call with biopsy results Disposition: PACU
[2021-08-10] MEDS: LIDOCAINE 4% SOLN 50 ML 20 ML TOP (08:12)
[2021-08-10] MEDS: MIDAZOLAM 5 MG/5 ML VIAL IV (08:13)
[2021-08-10] MEDS: fentaNYL 250 MCG/5 ML INJ IV (08:13)
--- NOTE | 2021-08-10 08:16 | SUR.PHASEI ---
Patient to recovery from endo with nursing staff in stable condition s/p EGD; vss; resting with eyes closed. RR even and unlabored. No distress noted.
--- NOTE | 2021-08-10 09:56 | SUR.PHASEII ---
Pt stated she was ready to go, ride available. More awake, steady when up, no c/o pain or discomfort. Pt left unit in stable condition.
== END 2021-08-10 09:30 | disposition home or self-care (01) ==
PROVIDERS: PCP Family Medicine; Referring Provider Surgery; Visit Provider Surgery
PROC: 0DJ08ZZ Inspection of Upper Intestinal Tract, Via Natural or Artificial Opening Endoscopic (ICD-10-PCS; CPT 43235; principal; 2021-08-10 07:45)
DX: K29.50 Unspecified chronic gastritis without bleeding (principal); K25.9 Gastric ulcer, unspecified as acute or chronic, without hemorrhage or perforation
CPT/HCPCS: 43239; 99152; J2250; J3010

== ENCOUNTER → 2021-08-28 10:24 | Outpatient (CLI) | payer OTHER, SELFPAY ==
[2021-08-28 11:22] LABS: COVID19 -Nasal RAPID Negative (Negative)
== END ==
PROVIDERS: PCP Family Medicine; Visit Provider Surgery
DX: Z01.812 Encounter for preprocedural laboratory examination (principal); Z20.822 Contact with and (suspected) exposure to COVID-19
CPT/HCPCS: 87635; C9803

== ENCOUNTER 2021-08-29 07:43 | Day surgery (SDC) | payer OTHER, SELFPAY ==
[2021-08-29] VITALS (9 sets, daily range): BP systolic 103–136; BP diastolic 5–81; PULSE 60–70; RESP 13–24; TEMP 36.2–36.8; O2SAT 98–100
--- NOTE | 2021-08-29 | PATH_ITS ---
[facility] Accession Number: [id number] . 01 Material submitted: . gallbladder - GALLBLADDER WITH CONTENTS . 02 Diagnosis: Gallbladder with Contents: Gallbladder with cholesterolosis and mild chronic cholecystitis. [facility] 09/01/2021 1441 Local . 02 Electronically signed: . Michelle Clarke MD, Pathologist NPI- [id number] . 01 Gross description: . Received in one part. . Received in formalin and labeled with the patient's name and designated gallbladder with contents is a 6.5 x 3.0 x 3.0 cm intact and distended gallbladder. The cystic duct margin is inked black. The serosa is green, hyperemic and smooth with a minimal amount of attached fat and scattered adhesions. The wall is uniform, 0.2 cm thick. The mucosa is green, velvety and bile stained, and slightly focally attenuated. No additional lesions are identified. The lumen is filled with green bile with no choleliths identified. [employer]er sections, including inked cystic duct margin en face, are submitted in A1. (AMARILYS:[id number]) /[facility] 08/31/2021 1711 Local . 02 Pathologist provided ICD-10: K81.1 . 02 CPT . 172765 Specimen Comment: A courtesy copy of this report has been sent to [phone] Performed at: 01 [facility] [address] [id number] MD Navdeep Boyce MD Phone: [phone] Performed at: [address] [facility] [address] [place], [place] [id number] MD Colleen Monreal MD Phone: [phone]
--- NOTE | 2021-08-29 07:57 | PM.PREOP ---
Pre-operative Note COVID-19 COVID-19 status: Negative Result date/Date tested (Pos, Neg/Pending): 08/28/21 Interval Note History & Physical reviewed/Exam performed by Physician: Yes Changes to H&P: No ASA Class (for procedural sedation): II
[2021-08-29] MEDS: LACTATED RINGERS 1,000 ML 42 ML IV (08:09)
[2021-08-29] MEDS: CEFAZOLIN 2 GM/20 ML SYRINGE IV (08:25)
--- NOTE | 2021-08-29 08:33 | SUR.OPER ---
Supine on padded OR bed, head on pillow, safety belt at thigh, left arm padded and tucked at side. Right arm secured on padded arm board <90 degrees abduction. Legs uncrossed. Padded footboard in place. Tape over blanket to secure lower legs.
[2021-08-29] MEDS: BUPIVACAINE 0.5% (PF) VIAL 30 ML INJ (08:45)
[2021-08-29] MEDS: LIDOCAINE 1% W/EPI 20 ML INJ (08:52)
--- NOTE | 2021-08-29 09:48 | PM.OP.1 ---
Operative Date/Time/Diagnoses Date of procedure: 08/29/21 Time of procedure: 09:48 Pre-op diagnosis: Chronic cholecystitis Post-op diagnosis: same Procedure & Clinicians Procedure: Laparoscopic cholecystectomy Same procedure as scheduled: Yes Surgeon: Jun Hamilton Anesthesia Type: General Operative Notes Estimated Blood Loss (mL): 25 Procedure in detail: The patient was given preoperative antibiotic. The patient was brought to the operating room, placed on the table in the supine position. General endotracheal anesthesia was induced. The abdomen was prepped and draped. A time-out was performed. We made a 1 cm infraumbilical incision. We dissected down to the base of the umbilical stalk using cautery. We grasped the umbilical stalk with a Hipolito clamp to elevate the abdominal wall. We scored the fascia in the midline with cautery 1 cm. We pierced the peritoneum with a Peon clamp. The Tu port was placed and the abdomen was insufflated to 15 mmHg. A 5 mm 30 degree laparoscopic was inserted. There was no evidence of any injury from the entry. Next, we placed 5 mm ports in the subxiphoid position and right upper quadrant at the midclavicular line and anterior axillary line. Patient was then positioned in reverse Trendelenburg and the table was tilted to the left. The gallbladder was grasped at the dome and retracted cephalad. There were some adhesions of mesenteric tissue to the right liver which were carefully dissected with cautery to allow full retraction of the gallbladder. We then dissected the cystic structures with a combination of hook cautery and blunt dissection. We obtained a critical view. We placed hemoclips on the cystic duct and artery and divided the cystic duct and artery sharply between the clips. The gallbladder was then dissected off the liver and placed in a specimen retrieval bag. We irrigated the right upper quadrant and all the aspirate returned clear. We then removed the 5 mm ports under direct vision we removed the Tu port. We then injected some local into the fascia and closed the fascia with 2 interrupted 0 Vicryl sutures. The skin incisions were closed with 4 Monocryl and Steri-Strips were applied. Band-Aids were applied over the Steri-Strips. EBL: 10 mL Specimen: Gallbladder Post-operative Condition: stable Disposition: PACU
[2021-08-29] MEDS: ONDANSETRON 4 MG/2 ML INJ IV (10:09)
[2021-08-29] MEDS: HYDROMORPHONE 2 MG INJ IV (10:10)
== END 2021-08-29 10:55 | disposition home or self-care (01) ==
PROVIDERS: PCP Family Medicine; Referring Provider Surgery; Visit Provider Surgery
PROC: 0FT44ZZ Resection of Gallbladder, Percutaneous Endoscopic Approach (ICD-10-PCS; CPT 47562; principal; 2021-08-29 07:45)
DX: K81.1 Chronic cholecystitis (principal); K21.9 Gastro-esophageal reflux disease without esophagitis; F41.9 Anxiety disorder, unspecified
CPT/HCPCS: 47562; J0690; J1100; J1170; J1885; J2250; J2405; J2704; J3010

== ENCOUNTER → 2022-05-22 08:15 | Outpatient (CLI) | payer OTHER, SELFPAY ==
--- NOTE | 2022-05-22 08:17 | DI.MG.S_ITS ---
BILATERAL DIGITAL SCREENING MAMMOGRAM 3D/2D WITH CAD WITH AUGMENTATION: 05/22/2022 CLINICAL: Routine screening. Family history of breast cancer. Comparison is made to exams dated: 03/30/2021 mammogram, 10/30/2019 mammogram, and 08/28/2018 mammogram - [facility]. Both breasts are heterogeneously dense, which may obscure small masses (category c / 51-75% glandular tissue). Current study was also evaluated with a Computer Aided Detection (CAD) system. Bilateral breast implants are intact. There are benign calcifications in both breasts. No significant masses, calcifications, or other findings are seen in either breast. There has been no significant interval change. IMPRESSION: BENIGN There is no mammographic evidence of malignancy. A 1 year screening mammogram is recommended. Based on Tyrer-Cuzick model (a risk assessment model), the patient's lifetime risk is 22.4% and her 10 year risk is 7.6%. If a patient has an elevated risk, a more comprehensive evaluation should be considered and/or a referral to a genetic counselor. The [place] [employer], [employer], and NCCN Guidelines advise the consideration of Breast MRI as an adjunct to screening mammography in patients whose Lifetime risk to develop breast cancer is 20% or higher. This exam was interpreted at Station ID: [id number]. NOTE: For mammograms, a report in lay terms will be sent to the patient. Approximately 15% of breast malignancies will not be visualized mammographically. In the management of a palpable breast mass, a negative mammogram must not discourage biopsy of a clinically suspicious lesion. Electronically Signed By: Alonso rasheed/chris:05/22/2022 09:47:09 copy to: Oscar Sue letter sent: Normal Exam ACR BI-RADS Category 2: Benign Finding(s) 3342F
== END ==
PROVIDERS: PCP Family Medicine; Referring Provider Family Medicine; Visit Provider Family Medicine
DX: Z12.31 Encounter for screening mammogram for malignant neoplasm of breast (principal); Z80.3 Family history of malignant neoplasm of breast
CPT/HCPCS: 77063; 77067

== ENCOUNTER → 2022-12-18 13:56 | Outpatient (CLI) | payer OTHER, SELFPAY ==
--- NOTE | 2022-12-18 13:58 | DI.RAD.S_ITS ---
PROCEDURE: XR THORACIC SPINE 3V INDICATIONS: Acute back pain no inj Right paraspinal T4/5 TECHNIQUE: 3 views of the thoracic spine were acquired. COMPARISON: None. FINDINGS: Bones: No fractures or dislocations. No suspicious bony lesions. 12 pairs of ribs are noted, and appear intact where visualized. Mild midthoracic endplate spurring. Soft tissues: No paravertebral stripe thickening. IMPRESSION: No visible vertebral body fracture and minimal degenerative change. Dictated by: Jacki Augustin M.D. on 12/18/2022 at 15:07 Approved by: Jakci Augustin M.D. on 12/18/2022 at 15:08
== END ==
PROVIDERS: PCP Family Medicine; Referring Provider Student in an Organized Health Care Education/Training Program; Visit Provider Student in an Organized Health Care Education/Training Program
DX: M54.6 Pain in thoracic spine (principal)
CPT/HCPCS: 72072

== ENCOUNTER → 2023-01-16 10:49 | Outpatient (CLI) | payer OTHER, SELFPAY | PROVIDERS: PCP Family Medicine; Visit Provider Nurse Practitioner Family | DX: S00.32XA Blister (nonthermal) of nose, initial encounter (principal) | CPT/HCPCS: 87070; 87075; 87147; 87205; 87252 ==

== ENCOUNTER → 2023-02-04 16:23 | Outpatient (CLI) | payer OTHER, SELFPAY ==
--- NOTE | 2023-02-04 16:26 | DI.RAD.S_ITS ---
PROCEDURE: XR HIP W PEL IF DONE RT 2V INDICATIONS: rt hip pain TECHNIQUE: AP pelvis with lateral view(s) of the right hip(s). COMPARISON: [facility], CR, XR SACROILIAC JOINTS 3+ VIEWS, 03/31/2020, 9:14. FINDINGS: Bones: No fractures or dislocations. Pelvic ring appears intact. No suspicious bony lesions. Mild symmetric axial hip joint space narrowing with minimal periarticular osteophyte formation. Degenerative disc and facet disease involves the inferior lumbar spine. Soft tissues: The visualized bowel gas pattern is normal. No suspicious soft tissue calcifications. IMPRESSION: Mild symmetric hip joint degeneration. Dictated by: Ajay PRUITT Interpreted: Tai Roe MD on 02/04/2023 at 16:51 Transcribed by: MARCO ANTONIO on 02/04/2023 at 16:52 Approved by: Tai Roe M.D. on 02/04/2023 at 22:00
== END ==
PROVIDERS: PCP Family Medicine; Referring Provider Family Medicine; Visit Provider Family Medicine
DX: M16.11 Unilateral primary osteoarthritis, right hip (principal); M25.551 Pain in right hip
CPT/HCPCS: 73502

== ENCOUNTER → 2023-06-21 16:02 | Outpatient (CLI) | payer OTHER, SELFPAY ==
--- NOTE | 2023-06-21 | DI.MG.S_ITS ---
BILATERAL DIGITAL SCREENING MAMMOGRAM 3D/2D WITH CAD WITH AUGMENTATION: 06/21/2023 CLINICAL: Routine screening. Family history of breast cancer. Comparison is made to exams dated: 05/22/2022 mammogram, 03/30/2021 mammogram, and 10/30/2019 mammogram - [facility]. Both breasts are heterogeneously dense, which may obscure small masses (category c / 51-75% glandular tissue). Current study was also evaluated with a Computer Aided Detection (CAD) system. Bilateral breast implants are stable. No significant masses, calcifications, or other findings are seen in either breast. There has been no significant interval change. IMPRESSION: NEGATIVE There is no mammographic evidence of malignancy. A 1 year screening mammogram is recommended. Based on Tyrer-Cuzick model (a risk assessment model), the patient's lifetime risk is 22.2% and her 10 year risk is 8.0%. If a patient has an elevated risk, a more comprehensive evaluation should be considered and/or a referral to a genetic counselor. The [place] [employer], [place] [employer], and NCCN Guidelines advise the consideration of Breast MRI as an adjunct to screening mammography in patients whose Lifetime risk to develop breast cancer is 20% or higher. This exam was interpreted at Station ID: [id number]. NOTE: For mammograms, a report in lay terms will be sent to the patient. Approximately 15% of breast malignancies will not be visualized mammographically. In the management of a palpable breast mass, a negative mammogram must not discourage biopsy of a clinically suspicious lesion. Electronically Signed By: Jacki [email or web address]/[email or web address]:06/24/2023 09:00:15 copy to: Oscar Sue letter sent: Normal Exam ACR BI-RADS Category 1: Negative 3341F
== END ==
PROVIDERS: PCP Family Medicine; Referring Provider Family Medicine; Visit Provider Family Medicine
DX: Z12.31 Encounter for screening mammogram for malignant neoplasm of breast (principal); Z80.3 Family history of malignant neoplasm of breast; R92.333 Mammographic heterogeneous density, bilateral breasts
CPT/HCPCS: 77063; 77067

== ENCOUNTER → 2023-07-13 08:18 | Outpatient (CLI) | payer OTHER, SELFPAY ==
[2023-07-13 09:03] LABS: Add Manual Diff / Slide Review NO; Basophils Absolute Auto 0 /uL (0-100); Basophils Percent Auto 0.9 % (0-2); Eosinophils Absolute Auto 500 /uL (0-450); Eosinophils Percent Auto 8.7 % (2-4); Hematocrit 36.1 % (36-46); Hemoglobin 12.2 g/dL (12.0-16.0); Lymphocytes Absolute Auto 2200 /uL (1100-4500); Lymphocytes Percent Auto 42.3 % (25-40); Mean Corpuscular HGB Conc 33.8 % (30-36); Mean Corpuscular Hemoglobin 31.1 PG (26-34); Mean Corpuscular Volume 92.1 fL (80-100); Monocytes Absolute Auto 400 /uL (0-900); Monocytes Percent Auto 6.7 % (3-14); Neutrophils Absolute Auto 2200 /uL (1500-7000); Neutrophils Percent Auto 41.4 % (50-75); Platelet Count 254 X10^3/uL (150-400); Red Blood Cell Count 3.92 X10^6/uL (4.0-5.2); White Blood Cell Count 5.3 X10^3/uL (4.5-11.0)
[2023-07-13 09:24] LABS: Erythrocyte Sedimentation Rate 1 MM/HR (0-20)
[2023-07-13 09:28] LABS: Alanine Aminotransferase 18 IU/L (<35); Albumin Globulin Ratio 1.4 (1.0-2.8); Alkaline Phosphatase 53 U/L (38-126); Aspartate Aminotransferase 30 IU/L (14-36); BUN Creatinine Ratio 26.8 (6-22); Bilirubin Total 0.7 mg/dL (0.2-1.3); Blood Urea Nitrogen 19 mg/dL (7-17); Calcium 8.7 mg/dL (8.4-10.2); Carbon Dioxide 30 mmol/L (22-32); Chloride 103 mmol/L (98-107); Cholesterol 186 mg/dL (140-199); Estimated Glomerular Filt Rate > 60 mL/min (>60); Globulin 2.8 g/dL (1.7-4.1); Glucose 93 mg/dL (70-100); HDL Cholesterol 74 mg/dL (40-60); HEMOLYSIS < 15 (0-50); LDL Cholesterol Calculated 101 mg/dL (<100); Potassium 4.3 mmol/L (3.4-5.1); Sodium 137 mmol/L (137-145); Total Protein 6.8 g/dL (6.3-8.2); Triglycerides 54 mg/dL (35-150)
[2023-07-13 09:31] LABS: Creatinine Urine Random 148.9 mg/dL
[2023-07-13 09:40] LABS: C-Reactive Protein Quant < 0.5 mg/dL (<1.0)
[2023-07-13 09:43] LABS: Microalbumin Urine Random < 0.6 mg/dL (0-1.6)
== END ==
LOC: LAB 08:19
PROVIDERS: PCP Family Medicine; Referring Provider Internal Medicine Rheumatology; Visit Provider Physician Assistant
DX: Z13.220 Encounter for screening for lipoid disorders (principal); Z13.6 Encounter for screening for cardiovascular disorders; M06.4 Inflammatory polyarthropathy; I10 Essential (primary) hypertension; Z82.49 Family history of ischemic heart disease and other diseases of the circulatory system
CPT/HCPCS: 36415; 80053; 80061; 82043; 82570; 85025; 85651; 86140

== ENCOUNTER → 2023-07-17 12:16 | Outpatient (CLI) | payer OTHER, SELFPAY ==
--- NOTE | 2023-07-17 | DI.MRI.S_ITS ---
BREAST MRI OF BOTH BREASTS: 07/17/2023 CLINICAL: High Risk screening. PROCEDURE: MR BREAST BI WO/W CON INDICATIONS: Family history of malignant neoplasm of breast TECHNIQUE: The patient was placed prone in a dedicated breast imaging coil. Precontrast axial STIR and 3D FLASH without fat saturation sequences were obtained. Both before and after bolus injection of contrast, sequential 1-minute axial 3D FLASH with fat saturation sequences for 3 time points, with subtraction images and maximum intensity projections (MIP's) generated. Delayed sagittal FLASH images with fat saturation were also obtained. Computer-aided detection, including computer algorithm analysis of MRI image data for lesion detection and characterization, pharmacokinetic analysis, with further physician review for interpretation, was performed. COMPARISON: None. FINDINGS: Image quality: Excellent. There is minimal background parenchymal enhancement. Right breast: No suspicious enhancement or mass lesions. The right breast implant is intact. Left breast: No suspicious enhancement or mass lesions. The left breast implant is intact. Miscellaneous: No suspicious axillary or intramammary adenopathy. Limited visualization of the heart, lungs, mediastinum and upper abdomen are unremarkable. IMPRESSION: NEGATIVE Negative breast MRI. Return to annual mammogram screening schedule is recommended. Future imaging is recommended as follows: 06/21/2024 screening mammogram. Electronically Signed By: Makenzie Otto M.D. lk/:07/17/2023 16:43:17 copy to: Oscar Sue letter sent: Normal Exam ACR BI-RADS Category 1: Negative [id number]
== END ==
LOC: MRI 12:16
PROVIDERS: PCP Family Medicine; Referring Provider Physician Assistant; Visit Provider Physician Assistant
DX: Z91.89 Other specified personal risk factors, not elsewhere classified (principal); Z80.3 Family history of malignant neoplasm of breast; Z12.39 Encounter for other screening for malignant neoplasm of breast
CPT/HCPCS: 77049; A9579

== ENCOUNTER → 2024-10-05 10:55 | Outpatient (CLI) | payer OTHER, SELFPAY ==
--- NOTE | 2024-10-05 10:56 | DI.MG.S_ITS ---
MM screening mammo implant BI: 10/05/2024. BI-RADS: 2 CLINICAL: 59-year old female for bilateral screening mammogram. Tyrer-Cuzick lifetime risk of 12.3%. Current reported family history of breast cancer: mother. The patient has bilateral implants. PRIOR EXAMS 07/17/2023, 06/21/2023, 05/22/2022, 03/30/2021, 10/30/2019, 08/28/2018, 08/27/2017, 08/24/2016, 07/11/2015. MAMMOGRAPHY TECHNIQUE: 2D and 3D (tomosynthesis) digital mammographic views obtained, with additional images as needed for full coverage. Current study was also evaluated with a Computer Aided Detection (CAD) system. DENSITY C. The breasts are heterogeneously dense, which may obscure small masses. IMPLANTS Breast implants present. MAMMOGRAPHY FINDINGS Bilateral: There are no suspicious masses, calcifications, or other findings in the breast. IMPRESSION: * No evidence of malignancy with benign findings. RECOMMENDATIONS Bilateral * Annual screening mammography. OVERALL ASSESSMENT CATEGORY BI-RADS-2: Benign. The [place] [employer] recommends annual screening mammography beginning at age 40 for women with average risk of breast cancer. ELECTRONICALLY SIGNED: Zen Oakley M.D. on 10/05/2024 at 06:26:56 PM PT Interpreting Station ID: [id number]
== END ==
PROVIDERS: PCP Family Medicine; Referring Provider Family Medicine; Visit Provider Family Medicine
DX: Z12.31 Encounter for screening mammogram for malignant neoplasm of breast (principal); R92.333 Mammographic heterogeneous density, bilateral breasts; Z80.3 Family history of malignant neoplasm of breast; Z98.82 Breast implant status
CPT/HCPCS: 77063; 77067

== ENCOUNTER → 2024-10-21 11:02 | Outpatient (CLI) | payer OTHER, SELFPAY ==
--- NOTE | 2024-10-21 11:14 | DI.RAD.S_ITS ---
PROCEDURE: XR FINGER RT MIN 2V INDICATIONS: PAIN FINGER TECHNIQUE: AP hand, 3 views of the 3rd finger(s) acquired. COMPARISON: [facility], , XR FINGER RT MIN 2V, 12/26/2020, 11:57. FINDINGS: Bones: No fractures or dislocations. No suspicious bony lesions. Soft tissues: No suspicious soft tissue calcifications. IMPRESSION: No acute bony abnormality. Dictated by: Sincere Thompson M.D. on 10/22/2024 at 2:05 Approved by: Sincere Thompson M.D. on 10/22/2024 at 2:46
== END ==
PROVIDERS: PCP Family Medicine; Referring Provider Chiropractor; Visit Provider Chiropractor
DX: S63.612A Unspecified sprain of right middle finger, initial encounter (principal); X58.XXXA Exposure to other specified factors, initial encounter
CPT/HCPCS: 73140

== ENCOUNTER → 2025-03-18 08:31 | Outpatient (CLI) | payer OTHER, SELFPAY ==
[2025-03-18 09:10] LABS: Add Manual Diff / Slide Review NO; Hematocrit 37.3 % (36-46); Hemoglobin 12.5 g/dL (12.0-16.0); Lymphocytes Absolute Auto 2700 /uL (1100-4500); Mean Corpuscular HGB Conc 33.4 % (30-36); Mean Corpuscular Hemoglobin 31.0 PG (26-34); Mean Corpuscular Volume 92.9 fL (80-100); Platelet Count 309 X10^3/uL (150-400)
[2025-03-18 09:42] LABS: HEMOLYSIS < 15 (0-50); Iron 135 ug/dL (37-170)
[2025-03-18 09:48] LABS: Alanine Aminotransferase 15 IU/L (<35); Albumin 4.3 g/dL (3.5-5.0); Albumin Globulin Ratio 1.5 (1.0-2.8); Alkaline Phosphatase 58 U/L (38-126); Blood Urea Nitrogen 17 mg/dL (7-17); Calcium 9.1 mg/dL (8.4-10.2); Carbon Dioxide 29 mmol/L (22-32); Chloride 98 mmol/L (98-107); Estimated Glomerular Filt Rate > 60 mL/min (>60); Globulin 2.8 g/dL (1.7-4.1); Glucose 94 mg/dL (70-99); HEMOLYSIS < 15 (0-50); Magnesium 2.1 mg/dL (1.6-2.3); Potassium 4.2 mmol/L (3.4-5.1); Sodium 134 mmol/L (137-145); Total Protein 7.1 g/dL (6.3-8.2)
[2025-03-18 09:57] LABS: Percent Iron Saturation 46 % (15-50); Total Iron Binding Capacity 295 ug/dL (265-497); Transferrin 258 mg/dL (206-381)
[2025-03-18 16:51] LABS: Cholesterol 214 mg/dL (140-199); HDL Cholesterol 81 mg/dL (40-60); Triglycerides 143 mg/dL (35-150)
== END ==
PROVIDERS: PCP Family Medicine; Referring Provider Family Medicine; Visit Provider Family Medicine
DX: I10 Essential (primary) hypertension (principal); Z13.220 Encounter for screening for lipoid disorders
CPT/HCPCS: 36415; 80053; 80061; 83540; 83550; 83735; 85025

== ENCOUNTER → 2025-03-29 07:56 | Day surgery (SDC) | payer OTHER, SELFPAY ==
--- NOTE | 2025-03-16 13:30 | PM.GYNHP.1 ---
History of Present Illness History of Present Illness Narrative: Raissa Kim is a 59 year old female procedure:?? 03-29-25 Preoperative diagnosis:? vaginal stenosis dyspareunia Planned Procedure:?? vaginoplasty (reverse posterior colporrhaphy) Postop Meds Tylenol 1000 mg, ?3 times a day? Motrin 600 mg (under age 65 yr) ,? 3 times a day Oycodone 5 mg,? take 1 pill every 4-6 hr as needed, # 15? Colace,? 1 pill BID, for constipation CC: Unable to have sexual intercourse HPI: 59-year-old female who presents for evaluation of above complaint.?? She reports onset of symptoms over 2 years ago.?? She considers this a? Moderate? problem. She reports that sexual intercourse is not possible. Her vaginal opening has decreased in size since menopause and it is too painful to allow sexual penetration whether partner. Her last menstrual period was about 6 years ago. She has been using vaginal estrogen for many years. She has also tried vaginal dilators, without success. She reports no prior vaginal surgery. She had no vaginal deliveries. She did have 2 C-sections. No sexual trauma, no injury, no vulvar skin disease, no vaginal skin disease. She reports that her has Roman penis is too big for her vaginal opening to have normal sexual function. It is now to the point that the vagina can not be penetrated. Exam below shows a small vaginal introitus. One finger could be inserted. But not 2 fingers. She needs plastic surgery with relaxing incisions to expand the vaginal opening and the posterior vaginal canal. This will be done in the posterior vagina. This will be a posterior vaginal repair that is effectively the opposite of a typical posterior colporrhaphy. Instead of narrowing the posterior vagina, it will be widened, to allow for sexual function. prior hyst -0 -0 c-sec -x2 Pelvic Floor Review of Systems: (HPI) Stress Urinary Incontinence symptoms (MATEUSZ): 0 Triggers include:? Urge Incontinence symptoms (Urge UI): 0 Triggers include:? Pads: She wears none Overactive Bladder symptoms (OAB):? ? Frequency:?? Every 2 hour Nocturia:?? Times 2-3 Urgency:?? No Prior incontinence treatment includes:? Medical:? No Surgical:? No? Kegels:?? Yes Physical therapy:?No? Pessary:?No? Diet / Fluids: Fluid restriction:? No Excessive fluids:?No Pain symptoms:? Painful bladder:???No Dysuria:??? No Dyspareunia:? Yes, now to the point of being unable to have intercourse Dysmenorrhea:? No Urinary Risk Factors UTI?s, recurrent:? No Hematuria:? No Kidney Stones:?No? Tobacco use:? No Pelvic Organ Prolapse (POP) symptoms:?? Bulge:?No Pressure and /or? Heaviness:?No Splint for defecation or voiding:???No Voiding dysfunction: Abnormal stream:? No Strain to void:? No Incomplete emptying:?No Voiding difficulty:? No Retention:??? No Bowel Function: Constipation:?No Strain to defecate:?No Fiber:?No Laxatives:?Occasionally Fecal Incontinence:? Liquid stool:? No Solid stool:?No?? Sexual function Sexually active: Not able to be sexually active, but wants to be Incontinence with sex:? No ? General Review of Systems: Constitutional, CV, Endo, Musc-skel, Eyes, Cancer, Skin, Breast, GI, Heme/Lymph, Psych, Urinary, Neuro, Machine Feeder Raw Stock, Resp, Sexual:??? Pertinent positives listed above in HPI All others reviewed and negative. All reviewed on patient questionnaire.? . . PFSH Medical History Vaginal stenosis Thoracic back pain Right shoulder pain Arthritis Sinus drainage Heart murmur Arrhythmia Endometrial hyperplasia Postmenopausal bleeding Hypnotic dependence with current use Insomnia Anxiety Depression Anxiety (02/27/17) Surgical History History of prosthetic unicompartmental arthroplasty of left knee (02/12/14) History of colonoscopy (11/23/09) History of excision of lesion (11/23/09) History of arthroscopy of left knee (08/12/02) History of left knee surgery History of endometrial ablation (08/08/12) Status post bunionectomy (01/07/13) History of breast augmentation (2000) Status post tubal ligation (2000) Status post delivery (1991) Status post delivery (1988) Status post breast biopsy (1982) Allergies bupropion (From WELLBUTRIN) Allergy (Severe, Verified 01/27/25 11:08) RASH Penicillins (PENICILLINS) Allergy (Severe, Verified 01/27/25 11:08) RASH Medications multivitamin 1 cap PO DAILY ##0 11/29/11 [History Confirmed 01/27/25] estradiol 0.01% (0.1 mg/gram) vaginal cream (Estrace) 1 g vaginal DAILY #42.5 grams 07/03/23 [Rx Confirmed 01/27/25] lisinopril 10 mg tablet 10 mg PO DAILY #90 tabs 03/11/24 [Rx Confirmed 01/27/25] citalopram 10 mg tablet 10 mg PO DAILY #90 tabs 08/13/24 [Rx Confirmed 01/27/25] trazodone 50 mg tablet 50 mg PO QPM #90 tabs 08/13/24 [Rx Confirmed 01/27/25] gabapentin 300 mg capsule 300 mg PO BEDTIME #90 caps 09/23/24 [Rx Confirmed 01/27/25] estradiol 2 mg (7.5 mcg/24 hour) vaginal ring (Estring) 1 vag ring vaginal [id number] #1 ea 10/20/24 [Rx Confirmed 01/27/25] Comment: Medications include Estring, vaginal estrogen cream, gabapentin, trazodone, Celexa, lisinopril Medical history notable for arthritis, anxiety Social History marital status: unmarried,single household members: spouse Tobacco & Substance Use Smoking Status: Former smoker alcohol intake: current substance use type: does not use Exam Vitals 01/27/2511:09 Height 5 ft 1 in Weight 126 lb BMI 23.8 BP 116/77 Blood Pressure Location Lt radial Position Sitting Pulse 64 Pulse Source Monitor Pulse Oximetry (%) 99 Oxygen Delivery Method room air General: healthy, alert, coherent, no acute distress, cooperative, nontoxic Pulmonary: normal breathing, no distress Abdomen: soft, no mass, non-distended, no hernia, non-tender Vulva: Normal labia majora, labia minora, and clitoris, non-tender However, the vaginal opening at the introitus is very small. One finger can easily be inserted. The normal caliber for sex is 2 fingers. Attempted Insertion of 2 fingers is not possible and causes her significant discomfort She needs a surgical procedure to create relaxing incisions in the posterior vagina to widen the vaginal introitus, and the vaginal canal Urethra meatus: normal, no discharge Perineum: Normal, non-tender Urethra: No mass, non-tender Bladder: no mass, non-tender Vagina: No lesions, no discharge, mild atrophy, non-tender to palpation, nontender to 1 finger, very tender and tight to 2 fingers Prolapse -none Levators: Non-tender, 3/ 5 kegel squeeze Cervix: Normal, No lesions, no discharge, non-tender Uterus: normal size, non-tender Bimanual: no mass, no adnexal mass, non-tender Anus: No lesion, non-tender, no hemorrhoid Assessment & Plan (1) Dyspareunia in female: Status: Acute (2) Vaginal stenosis: Status: Acute (3) Atrophic vulvovaginitis: Assessment and Plan ? Patient counseled regarding above conditions.? Educational materials given to patient. 1. She has dyspareunia due to stenosis of the vaginal canal and the vaginal introitus. Unable to have normal sexual function because of this. She desires surgical repair She needs a plastic surgical repair of the posterior vaginal wall. This is effectively a reverse surgical procedure of the typical posterior colporrhaphy. The goal of the surgery is to widen the vagina to allow for sexual function. We will submit for surgical code 87836 as this is essentially the same surgery, just done in reverse. See below for counseling 2. She also has postmenopausal vaginal atrophy, she uses an Estring for this. We will have her also use vaginal estrogen cream internally and around the introitus, 3 nights a week. This will allow for maximal pliability of the vaginal tissues prior to the surgery. This needs to occur for 2 months prior to the surgery for maximal effect. Surgical Counselling Note Patient seen for surgical counselling.? She desires surgical repair. Please see? H & P for exam and discussion. Date of procedure:?? 03-29-25 Preoperative diagnosis:? vaginal stenosis dyspareunia Planned Procedure:?? vaginoplasty (reverse posterior colporrhaphy) Postop Meds Tylenol 1000 mg, ?3 times a day? Motrin 600 mg (under age 65 yr) ,? 3 times a day Oycodone 5 mg,? take 1 pill every 4-6 hr as needed, # 15? Colace,? 1 pill BID, for constipation Patient counseled extensively about the Risks, Benefits, and Alternatives to surgery.? She was offered the opportunity to ask any questions, and all questions were answered. ? Surgical Risks include: Bleeding, Hemorrhage, Transfusion, Infection (especially wound or bladder), Injury to adjacent organs (especially bladder, ureter, bowel, blood vessels, nerves), Postop or Chronic Pain, need for Reoperation, and Life-threatening event (especially M.I., CVA, PE, DVT). Procedure Risks include: Failure to Cure condition, Recurrence of condition months or years later, Urinary incontinence, Voiding dysfunction or Urinary Retention with prolonged catheter use, Poor wound healing, Erosions of any mesh or graft used, Dyspareunia, Vaginal scarring or narrowing, Need for additional surgery (immediate or delayed).? The expected cure and improvement and failure rates were discussed. Patient counseled to avoid the following for 6 weeks after surgery: (1) Impact sports (like running or jumping), walking and stairs OK (2) Lifting over 20# (3) Sexual intercourse No limits after 6 weeks. ? Good exercise tolerance, > 4 Mets. Her current medications were reviewed, and instructions given over which to use and which to discontinue before surgery.? Post-operative care instructions reviewed.? We discussed post-operative pain: Pain should be in the mild-moderate range, but can be moderate-severe for the first few days.?? Prescriptions will typically be given for (1) acetaminophen (Tylenol) and (2) non-steroidal anti-inflammatory drug (NSAID, like Motrin or Naprosyn), use both together, around the clock. Prescription will also be given for a (3) narcotic pain medication. Use the narcotic as needed, as a booster to the Tylenol and NSAID. You might need 0-4 narcotic pills a day typically. The narcotic will only be needed for a few days.?? Gradually use less of the narcotic, but continue the Tylenol and NSAID.? After a few days, the narcotic should no longer be needed, and only the Tylenol and NSAID will be needed.? Warm packs or cold packs can also be used for pain.??Do not drive for as long as you are using the narcotic pain medication? - this should only be a few days.?? Constipation is associated with use of narcotic pain medications, and can be improved with use of a stool softener, or fiber, or a mild laxative.? If you are sent home from the hospital with a Tang Catheter in place:? please call the office on the day after surgery We will usually remove the catheter 2-4 days after surgery: a. You will perform an at home Tang catheter removal -or- b. You will come in to the office for a voiding trial, (For some unusual surgeries, we might leave the catheter in for up to 2 weeks, and then remove it.) Instructions for at home Tang catheter removal..... For at-home Atng catheter removal, this can be done on postop day 2 or 3 or 4, depending on various factors. 1. At 6 or 7 a.m., have the patient cut the Tang catheter with scissors, while standing in a shower or bath tub. a. Cut the catheter right in the middle of the tubing, about 6 inches from the body. b. The sterile water that is inside the Tang balloon will leak all over the floor of the shower or bath tub. This is expected. c. The catheter will either fall out of the urethra, or just gently pull on it and it will come out. 2. Now, the bladder will gradually fill up over the next few hours. 3. Go ahead and empty the bladder when you feel an urge to void. Please note how strong the urine stream is. a. If the urine stream is normal or close to normal, then everything is good to go. b. If the urine stream is slow or you can not void, then return to the clinic in the afternoon. We will place another Tang catheter. We will repeat the voiding trial in 3-4 days. All of her questions were answered Dewayne Conklin MD UroGynecology & Pelvic Reconstructive Surgery [facility] Medical History (Updated 01/27/25 @ 12:24 by Dewayne Conklin MD) Vaginal stenosis Thoracic back pain Right shoulder pain Arthritis Sinus drainage Heart murmur Arrhythmia Endometrial hyperplasia Postmenopausal bleeding Hypnotic dependence with current use Insomnia Anxiety Depression Anxiety (02/27/17) Surgical History History of prosthetic unicompartmental arthroplasty of left knee (02/12/14) History of colonoscopy (11/23/09) History of excision of lesion (11/23/09) History of arthroscopy of left knee (08/12/02) History of left knee surgery History of endometrial ablation (08/08/12) Status post bunionectomy (01/07/13) History of breast augmentation (2000) Status post tubal ligation (2000) Status post delivery (1991) Status post delivery (1988) Status post breast biopsy (1982) Social History marital status: unmarried,single household members: spouse alcohol intake: current substance use type: does not use Meds Home Medications and Allergies Home Medications ?Medication ?Instructions ?Recorded ?Confirmed ?Type multivitamin 1 cap PO DAILY ##0 11/29/11 01/27/25 History citalopram 10 mg tablet 10 mg PO DAILY #90 tabs 08/13/24 01/27/25 Rx trazodone 50 mg tablet 50 mg PO QPM #90 tabs 08/13/24 01/27/25 Rx gabapentin 300 mg capsule 300 mg PO BEDTIME #90 caps 09/23/24 01/27/25 Rx estradiol 2 mg (7.5 mcg/24 hour) 1 vag ring vaginal [id number] #1 ea 10/20/24 01/27/25 Rx vaginal ring (Estring) estradiol 0.01% (0.1 mg/gram) 1 g vaginal BEDTIME #42.5 grams 01/28/25 01/28/25 Rx vaginal cream (Estrace) lisinopril 10 mg tablet 10 mg PO DAILY #90 tabs 03/09/25 Rx oxycodone 5 mg tablet 5 mg PO Q8H PRN pain #15 tabs 03/16/25 03/16/25 Rx Allergies Allergy/AdvReac Type Severity Reaction Status Date / Time bupropion (From WELLBUTRIN) Allergy Severe RASH Verified 01/27/25 11:08 Penicillins (PENICILLINS) Allergy Severe RASH Verified 01/27/25 11:08 Assessment & Plan Assessment and plan (1) Vaginal stenosis: Status: Acute (2) Dyspareunia in female: Status: Acute Time-Based Coding :: [TOTAL MINUTES] spent with patient and on the chart (including review of chart, obtaining history, exam, reviewing outside data, placing orders, documenting exam and treatment plan, and counseling patient) on [DATE].
[2025-03-18 12:06] VITALS: BMI 23.8
[2025-03-29] VITALS (8 sets, daily range): BP systolic 106–133; BP diastolic 56–79; PULSE 72–98; RESP 13–27; TEMP 36.6–36.9; O2SAT 96–100
[2025-03-29] MEDS: LACTATED RINGERS 1,000 ML 42 ML IV (08:38)
[2025-03-29] MEDS: ACETAMINOPHEN 325 MG TABLET 975 MG PO (08:45)
[2025-03-29] MEDS: GABAPENTIN 300 MG CAPSULE PO (09:54)
--- NOTE | 2025-03-29 10:23 | PM.PREOP ---
Pre-operative Note Interval Note History & Physical reviewed/Exam performed by Physician: Yes Changes to H&P: No
--- NOTE | 2025-03-29 10:52 | SUR.OPER ---
Lithotomy on padded OR bed, head on pillow, arms secured on padded arm boards at <90 degrees abduction. Legs secured in padded yellow fins stirrups. Safety strap across abdomen.
[2025-03-29] MEDS: LIDOCAINE 1% W/EPI 10ML 20 ML INJ (10:59)
[2025-03-29] MEDS: ONDANSETRON 4 MG/2 ML INJ IV (12:11)
--- NOTE | 2025-03-29 12:34 | PM.GYNOP.1 ---
Operative Date/Time/Diagnoses Date of procedure: 03/29/25 Time of procedure: 11:00 Pre-op diagnosis: Vaginal stenosis, dyspareunia Post-op diagnosis: same Procedure & Clinicians Procedure: Procedures Operation Date: 03/29/25 09:45 Actual Procedure Side Surgeon p Posterior colporrhaphy Dewayne Conklin MD Operative Notes Findings: Operative Note Surgeon:? Dewayne Conklin MD Land Law Examiner:?? Vashti Segovia MD Pre-Op Diagnosis: Vaginal stenosis, dyspareunia, vaginal atrophy Post-Op Diagnosis: Same Procedure: Reverse posterior colporrhaphy (posterior vaginoplasty) Findings (brief): 1. Findings similar to the preop exam, 1 finger easily inserted. Unable to insert 2 fingers due to vaginal stenosis 2. Despite topical estrogen use, there is still significant vaginal atrophy. We will have her use oral estrogen and progesterone for the next 3-6 months after the surgery to try to overcome the vaginal atrophy 3. A midline incision was made inside the vagina, 4 cm long, down to the introitus. This incision was continued 2 cm along the perineal skin. Similar in concept to an episiotomy incision. All of the surrounding muscle was undermined off of the vaginal and perineal skin, and also dissecting and incising the muscle fibers to release tension. 4. This vertical incision was closed horizontally, with running 2-0 Vicryl sutures. The upper 2 cm part of the vaginal dissection was closed in the midline. After this, 2 fingers were easily able to be inserted. Date of Surgery:? 03-29-2025 Complications:? none Specimens:? none Anesthesia Technique:?? General endotracheal Estimated Blood Loss (mls):? 50 Blood Replacement (mls):? none Drains:? None Condition:? Stable Procedure in detail: After consent was confirmed, the patient was taken to the operating room and placed under general anesthesia without incident.? Sequential compression devices were in place and active.? She received perioperative antibiotics.? She was then prepped and draped in the usual sterile fashion after placement in the dorsal lithotomy position using the Michel stirrups.? A Tang catheter was placed.? Attention was then turned to the posterior vaginal wall. The posterior vaginal mucosa was grasped with Allis clamps and was injected with 20 cc of 0.5% lidocaine / epinephrine 1:200,000.? A midline incision was made in the posterior vagina from the introitus to 4 cm up into the vagina, and then continued 2 cm along the perineal skin. Next, the perineal and distal levator muscles were incised in the midline, specifically the bulbocavernosous muscle. Similar in concept to an episiotomy incision. The vaginal mucosa was dissected off of the underlying pelvic floor muscles, out to the pelvic sidewalls. Then the perineal skin was dissected off the underlying pelvic floor muscles. Then the underlying pelvic floor muscles were incised with electrocautery to create relaxing incisions to enlarge the caliber of the stenotic vagina. There was good hemostasis. Gradually, as the muscle fibers were incised and released, the vaginal caliber was enlarged to accommodate 2-3 fingers. A finger was placed into the rectum to guide the dissection and to avoid rectal injury. After the dissection, the posterior vaginoplasty repair was performed as incisions were closed. For the upper 2 cm of the vaginal incision, the vaginal mucosa was closed with running 2-0 Vicryl, as muscles remained apart. The remainder of the repair was closed with a horizontal suture line, in spite of the original incision being made vertically. Essentially, the vaginal mucosa that was 2 cm up from the introitus was reapproximated to the perineal skin that was 2 cm below the introitus, on the left side, with running 3-0 Vicryl, starting in the midline and this was carried out laterally. The same procedure was done on the right side. When the reverse closure was completed, the skin and the mucosa was intact, and 2 fingers were easily able to be inserted into the vagina. Hemostasis was noted. Sponge, needle and instrument count was correct.? The patient tolerated the procedure well and was taken to the recovery room in stable condition. An additional set of hands was needed to perform the surgery, so a events administrative assistant was needed for the case. The business office assistant provided retraction and exposure throughout the case. Dewayne Conklin MD UroGynecology & Pelvic Reconstructive Surgery [place], [place] Applied: none
--- NOTE | 2025-03-29 13:29 | SUR.PHASEII ---
1310 Vaginal packing removed without difficulty prior to voiding 200ml.
== END | disposition home or self-care (01) ==
PROVIDERS: PCP Family Medicine; Referring Provider Family Medicine; Visit Provider Obstetrics & Gynecology Gynecology
PROC: (CPT 57250; principal; 2025-03-29 09:45)
DX: N89.5 Stricture and atresia of vagina (principal); N94.10 Unspecified dyspareunia; N32.81 Overactive bladder; R35.0 Frequency of micturition; R35.1 Nocturia; Z87.891 Personal history of nicotine dependence; F41.9 Anxiety disorder, unspecified
CPT/HCPCS: 57250; J0330; J0689; J1100; J2250; J2405; J2704; J3010; J7120

== ENCOUNTER → 2025-06-09 13:47 | Outpatient (CLI) | payer OTHER, SELFPAY ==
[2025-06-09 14:25] LABS: Add Manual Diff / Slide Review NO; Hematocrit 35.8 % (36-46); Hemoglobin 12.1 g/dL (12.0-16.0); Lymphocytes Absolute Auto 2100 /uL (1100-4500); Mean Corpuscular HGB Conc 33.9 % (30-36); Mean Corpuscular Hemoglobin 30.6 PG (26-34); Mean Corpuscular Volume 90.2 fL (80-100); Platelet Count 248 X10^3/uL (150-400)
[2025-06-09 14:52] LABS: Alanine Aminotransferase 21 IU/L (<35); Albumin 4.4 g/dL (3.5-5.0); Albumin Globulin Ratio 1.6 (1.0-2.8); Alkaline Phosphatase 62 U/L (38-126); Blood Urea Nitrogen 20 mg/dL (7-17); Calcium 9.2 mg/dL (8.4-10.2); Carbon Dioxide 31 mmol/L (22-32); Chloride 101 mmol/L (98-107); Estimated Glomerular Filt Rate > 60 mL/min (>60); Globulin 2.8 g/dL (1.7-4.1); Glucose 126 mg/dL (70-99); HEMOLYSIS < 15 (0-50); Potassium 4.2 mmol/L (3.4-5.1); Sodium 139 mmol/L (137-145); Total Protein 7.2 g/dL (6.3-8.2)
== END ==
PROVIDERS: PCP Family Medicine; Referring Provider Physician Assistant; Visit Provider Physician Assistant
DX: R59.9 Enlarged lymph nodes, unspecified (principal)
CPT/HCPCS: 36415; 80053; 85025